=== PATIENT | female | born 1950 | race Hispanic/Latino ===

== ENCOUNTER 2019-02-21 22:34 | Inpatient (IN) | payer SELFPAY ==
[2019-02-21] MEDS ORDERED: FUROSEMIDE 100 MG/10 ML VIAL IV ONE (22:52)
[2019-02-21 22:57] LABS: Absolute Lymphocytes (CBC) 2.3 K/uL (0.7-4.9); Basophils % 0.5 % (0-1.3); Hematocrit 40.9 % (36.0-45.0); Lymphocytes % 16.3 % (15.3-44.8); MPV 8.4 fL (7.6-11.3)
[2019-02-21 22:57] LABS: Arterial Blood Carboxyhemoglob 0.7 % (0-1.5); Blood Gas Oxyhemoglobin 96.5 % (94-97); Blood O2 Saturation 97.8 % (92-98.5)
[2019-02-21 23:08] LABS: Protime INR 1.04
[2019-02-21 23:18] LABS: Albumin 4.2 g/dL (3.4-5.0); Bilirubin Direct 0.2 mg/dL (0-0.2); Bilirubin Total 0.4 mg/dL (0.2-1.0); Magnesium 1.9 mg/dL (1.8-2.4); Protein, Total 7.9 g/dL (6.4-8.2); Troponin (Emerg Dept Use Only) 0.02 ng/mL (0.0-0.045)
[2019-02-22] MEDS ORDERED: ACETAMINOPHEN 500 MG TAB ONE (00:51)
--- NOTE | 2019-02-22 02:00 | ER ---
Nurse's Notes [facility] Name: Puja Stuart Age: 68 yrs Sex: Female : 1950 Arrival Date: 02/21/2019 Time: 22:39 Bed 3 Private MD: Diagnosis: Acute dyspnea. Congestive heart failure. Chest pain Presentation: 02/21 22:45 Presenting complaint:. Transition of care: patient was not received from another setting of care. Onset of symptoms was February 19, 2019. Risk Assessment: Do you want to hurt yourself or someone else? Patient reports no desire to harm self or others. Initial Sepsis Screen: Does the patient meet any 2 criteria? RR > 20 per min. HR > 90 bpm. Yes Does the patient have a suspected source of infection? Yes: Productive cough/pneumonia If YES to both, name of provider notified: Hank Godfrey MD. 22:45 Method Of Arrival: EMS: [facility] 22:45 Acuity: VITO 1 bb 23:17 Care prior to arrival: Medication(s) given: Normal saline infusion, adenosine 12 mg x bb 2, cardizem 20 mg IV initiated. 18 GA, in the right antecubital area, Oxygen administered. via a non-rebreather mask. Historical: - Allergies: 23:17 No Known Allergies; bb - Home Meds: 23:17 Unable to obtain [Active]; bb - PMHx: 23:17 Diabetes - NIDDM; Hypertension; bb - Immunization history:: Adult Immunizations not up to date. - Social history:: Smoking status: Patient/guardian denies using tobacco, the patient reports quitting approximately 11 years ago. - Ebola Screening: : No symptoms or risks identified at this time. Screenin:07 Abuse screen: Denies threats or abuse. Nutritional screening: No deficits noted. ea Tuberculosis screening: No symptoms or risk factors identified. Fall Risk IV access (20 points). Assessment: 23:11 General: Appears uncomfortable, Behavior is appropriate for age. Pain: Denies pain. ea Neuro: Level of Consciousness is awake, alert, obeys commands, Oriented to person, place, time, situation. Cardiovascular: Patient's skin is warm and dry. Respiratory: Airway is patent Respiratory effort is even, Respiratory pattern is regular, tachypnea Pt on BiPAP, tolerating well Breath sounds are coarse bilaterally. Derm: Skin is moist, Skin is pale, Skin temperature is cool. 23:59 Reassessment: pt on Bipap resp less labored, IV site intact, RT called for transfer of bb pt to CT. 02/22 01:00 Reassessment: Patient and/or family updated on plan of care and expected duration. Pain ea level reassessed. Patient is alert, oriented x 3, equal unlabored respirations, skin warm/dry/pink. Pt complaining of headache, provider notified, medication order obtained, medication administered, pt tolerated well. 03:10 Reassessment: Pt is A\T\O x 4, resp tachypneic, pt on NRB at 10 Lpm and appears more bb comfortable, IV site intact, report called to [facility] for room 403. 03:26 Reassessment: Patient and/or family updated on plan of care and expected duration. Pain ea level reassessed. Reassessment: Patient and/or family updated on plan of care and expected duration. Pain level reassessed. Pt reports she is feeling a better, respiration rate improved. Pt admitted to fourth floor, taken via wheelchair per tech on non rebreather. Pt tolerating well. Vital Signs: 02/21 22:35 BP 134 / 122; Pulse 143; Resp 40; Temp 97.0; Pulse Ox 90% ; Weight 68.04 kg; Height 5 ea ft. 5 in. (165.10 cm); 23:57 BP 118 / 61; Pulse 99; Resp 36 S; Pulse Ox 98% on BiPAP; bb 02/22 03:11 BP 135 / 78; Pulse 103; Resp 24 S; Temp 98(O); Pulse Ox 94% on 10% Non-rebreather mask; bb 02/21 22:35 Body Mass Index 24.96 (68.04 kg, 165.10 cm) ea ED Course: 02/21 22:39 Patient arrived in ED. em1 22:44 Hank Godfrey MD is Attending Physician. pkl 22:45 Patient RT at bedside for Bipap placement. Family accompanied patient. bb 22:55 Salome Aponte, LEODAN is Primary Nurse. ea 23:10 Chest Single View XRAY In Process Unspecified. EDMS 23:10 Patient has correct armband on for positive identification. Bed in low position. Call ea light in reach. Side rails up X2. 23:10 Maintain EMS IV. Dressing intact. Good blood return noted. Site clean \T\ dry. Gauge \T\ ea site: 18 G to right AC. 23:14 Arm band placed on right wrist. Patient placed in an exam room, on a stretcher, on ea scada technician, on pulse oximetry, Placed on BiPAP by respiratory. 23:16 Triage completed. bb 23:47 Radiology exam delayed due to Patient given Lasix. On bed garcia at this time. kw1 02/22 00:42 CT Chest For PE Angio In Process Unspecified. EDMS 01:58 Juan Osborne DO is Hospitalizing Provider. pkl 03:12 No provider procedures requiring assistance completed. Patient admitted, IV remains in bb place. Administered Medications: 02/21 22:56 Drug: Lasix 80 mg Route: IVP; Site: right antecubital; ea 02/22 03:13 Follow up: Response: No adverse reaction bb 00:54 Drug: Tylenol 1000 mg Route: PO; ea 03:13 Follow up: Response: No adverse reaction bb Output: 02/21 23:07 Urine: 310ml (Voided); Total: 310ml. ea 23:24 Urine: 300ml (Voided); Total: 610ml. ea Outcome: 02/22 02:00 Decision to Hospitalize by Provider. pkl 03:12 Admitted to Tele accompanied by tech, via stretcher, room 403, with oxygen, with chart, bb Report called to Rina ALCOCER 03:12 Condition: stable 03:12 Instructed on the need for admit. 03:28 Patient left the ED. ea Signatures: Dispatcher [employer] EDNV Hank Godfrey MD MD pkl Ballard, Brenda, RN RN Kei Dawson em1 Salome Aponte RN RN ea Gretel Yun kw1 Corrections: (The following items were deleted from the chart) 02/21 23:19 22:45 Care prior to arrival: None. bb bb 02/22 03:28 02:00 Reassessment: Patient and/or family updated on plan of care and expected ea duration. Pain level reassessed. Patient is alert, oriented x 3, equal unlabored respirations, skin warm/dry/pink. ea
--- NOTE | 2019-02-22 02:01 | EDPHYS ---
Physician Documentation [facility] Name: Puja Stuart Age: 68 yrs Sex: Female : 1950 Arrival Date: 02/21/2019 Time: 22:39 Bed 3 Private MD: ED Physician Hank Godfrey HPI: 02/21 22:50 This 68 yrs old Female presents to ER via Unassigned with unknown complaint. pkl 22:50 The patient has shortness of breath at rest. Onset: The symptoms/episode began/occurred pkl yesterday, and became worse today. Associated signs and symptoms: Pertinent positives: chest pain, diaphoresis. Historical: - Allergies: 23:17 No Known Allergies; bb - Home Meds: 23:17 Unable to obtain [Active]; bb - PMHx: 23:17 Diabetes - NIDDM; Hypertension; bb - Immunization history:: Adult Immunizations not up to date. - Social history:: Smoking status: Patient/guardian denies using tobacco, the patient reports quitting approximately 11 years ago. - Ebola Screening: : No symptoms or risks identified at this time. ROS: 22:50 Eyes: Negative for injury, pain, redness, and discharge, ENT: Negative for injury, pkl pain, and discharge, Neck: Negative for injury, pain, and swelling. 22:50 Cardiovascular: Positive for chest pain. 22:50 Respiratory: Positive for shortness of breath, at rest. 22:50 Abdomen/GI: Negative for abdominal pain, nausea, vomiting, and diarrhea. 22:50 Back: Negative for acute changes. 22:50 : Negative for urinary symptoms. 22:50 MS/extremity: Negative for acute changes. 22:50 Skin: Negative for rash. 22:50 Neuro: Negative for altered mental status, loss of consciousness. Exam: 22:50 Head/Face: Normocephalic, atraumatic. Eyes: Pupils equal round and reactive to light, pkl extra-ocular motions intact. Lids and lashes normal. Conjunctiva and sclera are non-icteric and not injected. Cornea within normal limits. Periorbital areas with no swelling, redness, or edema. ENT: Nares patent. No nasal discharge, no septal abnormalities noted. Tympanic membranes are normal and external auditory canals are clear. Oropharynx with no redness, swelling, or masses, exudates, or evidence of obstruction, uvula midline. Mucous membranes moist. Neck: Trachea midline, no thyromegaly or masses palpated, and no cervical lymphadenopathy. Supple, full range of motion without nuchal rigidity, or vertebral point tenderness. No Meningismus. Chest/axilla: Normal chest wall appearance and motion. Nontender with no deformity. No lesions are appreciated. 22:50 Cardiovascular: Rate: tachycardic, actual rate is 140 bpm, Rhythm: regular. 22:50 ECG was reviewed by the Attending Physician. 22:50 Respiratory: moderate respiratory distress is noted, Respirations: labored breathing, that is moderate, Breath sounds: rales, that are moderate, are scattered. 22:50 Abdomen/GI: Bowel sounds: normal, Palpation: abdomen is soft and non-tender, in all quadrants. 22:50 Back: Exam negative for acute changes. 22:50 : Exam negative for acute changes. 22:50 Musculoskeletal/extremity: Exam is negative for acute changes. 22:50 Skin: Exam negative for rash. 22:50 Neuro: Orientation: is normal, Mentation: is normal, Cranial nerves: grossly normal, Motor: is normal. Vital Signs: 22:35 BP 134 / 122; Pulse 143; Resp 40; Temp 97.0; Pulse Ox 90% ; Weight 68.04 kg; Height 5 ea ft. 5 in. (165.10 cm); 23:57 BP 118 / 61; Pulse 99; Resp 36 S; Pulse Ox 98% on BiPAP; bb 02/22 03:11 BP 135 / 78; Pulse 103; Resp 24 S; Temp 98(O); Pulse Ox 94% on 10% Non-rebreather mask; 02/21 22:35 Body Mass Index 24.96 (68.04 kg, 165.10 cm) ea MDM: 02/21 22:44 Patient medically screened. pkl 02/22 01:56 Data reviewed: vital signs, nurses notes, lab test result(s), EKG, radiologic studies, pkl CT scan, plain films. 02/21 22:45 Order name: Basic Metabolic Panel; Complete Time: 23:27 pkl 02/21 22:45 Order name: CBC with Diff; Complete Time: 23:27 pkl 02/21 22:45 Order name: LFT's; Complete Time: 23:27 pkl 02/21 22:45 Order name: Magnesium; Complete Time: 23:27 pkl 02/21 22:39 Order name: Chest Single View XRAY em1 02/21 22:39 Order name: BIPAP em1 02/21 22:45 Order name: NT PRO-BNP; Complete Time: 23:27 pkl 02/21 22:45 Order name: PT-INR; Complete Time: 23:27 pkl 02/21 22:45 Order name: Troponin (emerg Dept Use Only); Complete Time: 23:27 pkl 02/21 22:45 Order name: D-Dimer; Complete Time: 23:27 pkl 02/21 22:55 Order name: Hemoglobin A1c pkl 02/21 22:55 Order name: ABG; Complete Time: 23:27 em1 02/21 22:45 Order name: EKG; Complete Time: 22:46 pkl 02/21 22:45 Order name: Cardiac monitoring; Complete Time: 22:56 pkl 02/21 22:45 Order name: EKG - Nurse/Tech; Complete Time: 22:56 pkl 02/21 22:45 Order name: IV Saline Lock; Complete Time: 22:57 pkl 02/21 22:45 Order name: Labs collected and sent; Complete Time: 22:57 pkl 02/21 22:45 Order name: O2 Per Protocol; Complete Time: 22:57 pkl 02/21 22:45 Order name: O2 Sat Monitoring; Complete Time: 22:57 pkl 02/21 23:29 Order name: CT Chest For PE Angio pkl Administered Medications: 02/21 22:56 Drug: Lasix 80 mg Route: IVP; Site: right antecubital; ea 02/22 03:13 Follow up: Response: No adverse reaction bb 00:54 Drug: Tylenol 1000 mg Route: PO; ea 03:13 Follow up: Response: No adverse reaction bb Disposition: 02/22/19 02:00 Hospitalization ordered by Juan Osborne for Observation. Preliminary diagnosis is Acute dyspnea. Congestive heart failure. Chest pain. - Bed requested for Telemetry/MedSurg (observation). - Status is Observation. ea - Condition is Stable. - Problem is new. - Symptoms have improved. UTI on Admission? No Signatures: Dispatcher [employer] EDMS Hank Godfrey MD MD pkl Michaelle Escalante RN Trinity Ruiz, Salome Lorenzo RN, RN RN ea Corrections: (The following items were deleted from the chart) 02/21 22:49 22:40 ABG Arterial Blood Gas ordered. EDNE EDMS 02/22 02:25 02:00 Hospitalization Ordered by Juan Osborne DO for Observation. Preliminary cg diagnosis is Acute dyspnea. Congestive heart failure. Chest pain. Bed requested for Telemetry/MedSurg (observation). Status is Observation. Condition is Stable. Problem is new. Symptoms have improved. UTI on Admission? No. pkl 03:28 02:25 02/22/2019 02:00 Hospitalization Ordered by Juan Osborne DO for Observation. ea Preliminary diagnosis is Acute dyspnea. Congestive heart failure. Chest pain. Bed requested for Telemetry/MedSurg (observation). Status is Observation. Condition is Stable. Problem is new. Symptoms have improved. UTI on Admission? No. cg
--- NOTE | 2019-02-22 02:52 | P.HP ---
Certification for Inpatient Patient admitted to: Observation With expected LOS: <2 Midnights Patient will require the following post-hospital care: None Practitioner: I am a practitioner with admitting privileges, knowledge of patient current condition, hospital course, and medical plan of care. Services: Services provided to patient in accordance with Admission requirements found in Title 42 Section 412.3 of the Code of Federal Regulations Patient History Date of Service: 02/22/19 Primary Care Provider: Norm Haley Reason for admission: Chest pain History of Present Illness: 68-year-old female presented to the emergency room with chest pain. Patient with history of diabetes, hypertension and possible cardiomegaly. Patient presented to the ER by EMS. Daughter reported that the patient had increasing chest pain. She also was diaphoretic with severe respiratory distress. Patient denied any fever, chills. She reported headache. She had difficulty breathing with noted shortness of breath. No mention of edema to the lower extremities. Daughter reports patient has history of diabetes, hypertension and enlarged heart. She is not taking any medication except for ibuprofen. In the ER patient was evaluated. Patient was initially tachycardic with a rate in the 140s and tachypneic with a respiratory to 40. Oxygen saturations around 80%. Patient required IV Lasix 80 mg. Patient also required a BiPAP with improvement noted now on a non-rebreather. On lab white count 14.1, hemoglobin 13.6. Sodium 141, potassium 4.0 %period% creatinine 0.95 with a GFR 58. Glucose 247. BNP 2200. Troponin 0.02. CT chest negative for pulmonary embolism. Evidence of CHF noted. Incidental 3.3 cm thyroid nodule and pulmonary nodule noted. Patient now stabilize. Patient admitted for further evaluation. When I saw the patient in the ER, her respiratory distress had resolved after given Lasix. Patient much improved. No chest pain noted at this time. Patient is a former smoker. As mentioned above she only takes ibuprofen for arthritis. Patient is to be taking medication for diabetes, hypertension. Home medications list reviewed: Yes - Past Medical/Surgical History Diabetic: Yes -: Diabetes mellitus type 2 non insulin dependent -: Hypertension -: Cardiomegaly -: Arthritis -: Former tobacco use -: Hysterectomy -: Appendectomy Psychosocial/ Personal History: Patient is . She does not work - Family History Family History: Reviewed- Non-Contributory - Social History Smoking Status: Former smoker Alcohol use: No CD- Drugs: No Caffeine use: Yes Place of Residence: Home Review of Systems General: As per HPI Eyes: Unremarkable ENT: Unremarkable Respiratory: Shortness of Breath, SOB with Excertion, As per HPI Cardiovascular: Chest Pain, Palpitations, Light Headedness, As per HPI Gastrointestinal: Unremarkable Genitourinary: Unremarkable Musculoskeletal: Unremarkable Integumentary: Unremarkable Neurological: Unremarkable Lymphatics: Unremarkable Physical Examination - Physical Exam General: Alert, In no apparent distress, Oriented x3, Cooperative HEENT: Atraumatic, Normocephalic, PERRLA, Mucous membr. moist/pink Neck: Supple Respiratory: Clear to auscultation bilaterally, Normal air movement Cardiovascular: Abnormal pulses (Mild tachycardia ) Gastrointestinal: Normal bowel sounds, Soft and benign, Non-distended, No tenderness, No masses, No rebound, No guarding Musculoskeletal: No erythema, No tenderness, No warmth Integumentary: No tenderness/swelling, No erythema, No warmth, No cyanosis Neurological: Normal speech, Normal strength at 5/5 x4 extr, Normal tone, Normal affect Lymphatics: No axilla or inguinal lymphadenopathy - Studies Laboratory Data (last 24 hrs) 02/21/19 22:49: PT 12.2, INR 1.04 02/21/19 22:49: WBC 14.1 H, Hgb 13.6, Hct 40.9, Plt Count 246 02/21/19 22:49: Sodium 141, Potassium 4.0, BUN 19 H, Creatinine 0.95, Glucose 247 H, Magnesium 1.9, Total Bilirubin 0.4, AST 22, ALT 30, Alkaline Phosphatase 107 Assessment and Plan - Plan Impression: Chest pain, shortness of breath with noted acute respiratory distress likely related to acute CHF suspect diastolic dysfunction Diabetes mellitus type 2, non insulin dependent with hyperglycemia Hypertension Thyroid nodule Pulmonary nodule Former tobacco use Plan: Chest pain, shortness of breath with noted acute respiratory distress likely related to acute CHF suspect diastolic dysfunction: Patient will be admitted for further evaluation and treatment. Patient much improved with Lasix. Suspect CHF. Will monitor cardiac enzymes and telemetry. Will order echocardiogram. Will continue with Lasix 40 mg p.o. b.i.d. we will obtain procalcitonin to rule out infectious cause. Cardiology consulted to further evaluate. Patient has multiple risk factors. Patient may require further cardiac evaluation. Will provide DVT prophylaxis-Lovenox. Recheck chest x-ray this morning. Wean off oxygen. Daytime hospitalist will continue her care. Anticipate discharge in the next 24-48 hr pending clinical improvement and cardiology recommendation. Diabetes mellitus type 2, non insulin dependent with hyperglycemia: Will check A1c. Will monitor Accu-Cheks and provide sliding scale. Hypertension: Will start metoprolol. Will provide medication for better blood pressure control. Thyroid nodule: This is an incidental finding. Will check tsh and free T4. Recommend thyroid ultrasound as an outpatient. Pulmonary nodule: This is an incidental finding. Recommend repeat CT chest in the near future to further monitor stability. Former tobacco use: Overall stable. Will provide medication for possible underlying COPD. Discharge Plan: Home Plan to discharge in: 48 Hours - Advance Directives Does patient have a Living Will: No Does patient have a Durable POA for Healthcare: No - Code Status/Comfort Care Code Status Assessed: Yes (Patient is full code) Time Spent Managing Pts Care (In Minutes): 55
[2019-02-22] MEDS ORDERED: HYDRALAZINE HCL 20 MG/ML VIAL IV PRN (03:43)
[2019-02-22] MEDS ORDERED: ONDANSETRON 4 MG/2 ML VIAL IV PRN (03:43)
[2019-02-22] MEDS ORDERED: ALBUTEROL 2.5 MG/3 ML NEB SOL NEB PRN (03:43)
[2019-02-22] MEDS ORDERED: ACETAMINOPHEN 500 MG TAB PO PRN (03:43)
[2019-02-22 04:21] VITALS: BMI 25.0
[2019-02-22] MEDS: METOPROLOL TAR 25 MG TAB PO SCH ×2 (05:17→17:42)
[2019-02-22 05:43] LABS: Urine Appearance CLEAR; Urine Bilirubin NEGATIVE (NEG); Urine Blood NEGATIVE (NEG); Urine Color YELLOW; Urine Glucose NEGATIVE (NEG); Urine Protein NEGATIVE (NEG); Urine Specific Gravity >=1.030 (1.005-1.030); Urine Urobilinogen 0.2 mg/dL (0.2-1.0)
[2019-02-22 05:56] LABS: Urine Microscopic Reflex NO UMIC
[2019-02-22 06:55] LABS: CKMB Creatine Kinase MB 3.3 ng/mL (0.3-3.6); Thyroid Stimulating Hormone 2.21 uIU/mL (0.360-3.740)
[2019-02-22 07:03] LABS: Troponin I 1.27 ng/mL (0.0-0.045)
[2019-02-22] MEDS: INSULIN -REGULAR HUMAN 50 UNIT/0.5 ML ML SQ SCH ×4 (07:30→21:00)
[2019-02-22] MEDS: ARFORMOTEROL TARTRATE 15 MCG/2 ML VIAL.NEB NEB SCH ×2 (08:00→20:00)
[2019-02-22] MEDS: FUROSEMIDE 40 MG TABLET PO SCH ×2 (08:02→16:06)
[2019-02-22] MEDS: ASPIRIN EC 81 MG TAB PO SCH (08:02)
[2019-02-22] MEDS: ENOXAPARIN 40 MG/0.4 ML SQ SCH (08:02)
[2019-02-22] MEDS: FAMOTIDINE 20 MG TAB PO SCH ×2 (08:02→20:04)
[2019-02-22] MEDS ORDERED: PNEUMOCOCCAL VACCINE 0.5 ML IMVAC ONE (09:00)
[2019-02-22] MEDS ORDERED: NITROGLYCERIN 0.4 MG/TAB SL PRN (10:43)
[2019-02-22] MEDS ORDERED: MORPHINE 2 MG/ML SYR IV PRN (10:43)
--- NOTE | 2019-02-22 10:45 | EKG ---
Test Date: 2019-02-22 Test Time: 08:37:38 Paralegal Legal Secretary: SEEMA MEASUREMENT RESULTS: Intervals: Rate: 87 MA: 140 QRSD: 102 QT: 442 QTc: 531 [place]: P: 66 MA: 140 QRS: 96 T: -45 INTERPRETIVE STATEMENTS: Normal sinus rhythm Rightward axis Voltage criteria for left ventricular hypertrophy ST & T wave abnormality, consider inferior ischemia Prolonged QT Abnormal ECG Compared to ECG 02/21/2019 22:41:49 Right-axis deviation now present ST (T wave) deviation now present Possible ischemia now present Prolonged QT interval now present Sinus tachycardia no longer present Myocardial infarct finding no longer present Electronically Signed On 02-22-19 10:45:06 CDT by Nick Tyson
--- NOTE | 2019-02-22 10:46 | EKG ---
Test Date: 2019-02-21 Test Time: 22:41:49 Tonnage Compilation Clerk: EA MEASUREMENT RESULTS: Intervals: Rate: 123 IL: 134 QRSD: 118 QT: 352 QTc: 503 [place]: P: 69 IL: 134 QRS: 21 T: 68 INTERPRETIVE STATEMENTS: Sinus tachycardia Left ventricular hypertrophy with QRS widening Cannot rule out Septal infarct, age undetermined Abnormal ECG Compared to ECG 01/21/2011 11:03:22 Myocardial infarct finding now present ST (T wave) deviation no longer present Electronically Signed On 02-22-19 10:45:25 CDT by Nick Tyson
--- NOTE | 2019-02-22 11:41 | RAD REPORT ---
EXAM DESCRIPTION: Mariann Single View02/21/2019 11:08 pm CLINICAL HISTORY: Chest pain COMPARISON: none FINDINGS: Mild bilateral interstitial lung opacities Heart is mildly to moderately enlarged IMPRESSION: Mild CHF
--- NOTE | 2019-02-22 12:43 | CON ---
Identification: 68-year-old woman. Additional Attending Physician: Dr. Quinn. Chief Complaint: Chest pain. History Of Present Illness: Ms. Stuart had chest pain yesterday. She has underlying diabetes, hypert ension. Takes medicines, but does not know the name of the medicines. She does not use tobacco. Andrwe rocha has never had myocardial infarction or stroke before. Allergies: SHE REPORTS NO ALLERGIES. Social History: Alcohol use minimal. No illegal drugs. Physical Examination: Constitutional: 5 feet 5 inches, 150 pounds. Body mass index 25.0. HEENT: Normal. Neck: Carotids, no bruit. Lungs: Clear. Cardiac: Within normal limits. Abdomen: Soft. Extremities: No cyanosis, clubbing, or edema. Distal pulses normal. Diagnostic Studies: Her electrocardiogram shows sinus rhythm, left ventricular hypertrophy, nonspeci fic repolarization abnormality. Ms. Stuart's troponins were normal when she came in and has gone up t o 1.27. Impression: Ms. Stuart has had a non-ST elevation non-Q-wave myocardial infarction. I think she need s to have a heart catheterization. We will preach her about that and plan to do it 48 hours from now. In the meantime, she will be on a statin, a beta-hailey, and dual antiplatelet ther apy. ANDREW/RAYA Voice ID: [id number] Report ID: [id number]
[2019-02-22 13:42] LABS: CKMB Creatine Kinase MB 2.3 ng/mL (0.3-3.6)
[2019-02-22 13:43] LABS: Troponin I 0.85 ng/mL (0.0-0.045)
[2019-02-22] MEDS: ATORVASTATIN 40 MG TAB PO SCH (20:04)
[2019-02-23] MEDS: METOPROLOL TAR 25 MG TAB PO SCH ×2 (05:46→17:24)
--- NOTE | 2019-02-23 06:18 | EKG ---
Test Date: 2019-02-22 Test Time: 08:42:59 Viscosity Inspector: SEEMA MEASUREMENT RESULTS: Intervals: Rate: 86 TX: 136 QRSD: 110 QT: 442 QTc: 528 [place]: P: 67 TX: 136 QRS: -31 T: 85 INTERPRETIVE STATEMENTS: Normal sinus rhythm Possible Left atrial enlargement Left axis deviation Intraventricular conduction delay Left ventricular hypertrophy Nonspecific ST and T wave abnormality Prolonged QT Abnormal ECG Compared to ECG 02/22/2019 08:37:38 Left-axis deviation now present Left bundle-branch block now present Right-axis deviation no longer present ST (T wave) deviation still present Electronically Signed On 02-23-19 06:17:45 CDT by Nick Tyson
[2019-02-23 06:57] LABS: Absolute Lymphocytes (CBC) 2.4 K/uL (0.7-4.9); Basophils % 0.8 % (0-1.3); Hematocrit 39.8 % (36.0-45.0); Lymphocytes % 32.3 % (15.3-44.8); MPV 8.7 fL (7.6-11.3)
[2019-02-23 07:07] LABS: Potassium 3.3 mmol/L (3.5-5.1)
[2019-02-23] MEDS: INSULIN -REGULAR HUMAN 50 UNIT/0.5 ML ML SQ SCH ×4 (07:30→21:00)
[2019-02-23] MEDS: IPRATROPIUM BROM 0.5MG/2.5ML NEB PRN (08:30)
[2019-02-23] MEDS: ARFORMOTEROL TARTRATE 15 MCG/2 ML VIAL.NEB NEB SCH ×2 (08:30→19:55)
[2019-02-23] MEDS ORDERED: POTASSIUM 25 MEQ EFFERV TAB PO ONE ×2 (09:04→17:30)
[2019-02-23] MEDS: ASPIRIN EC 81 MG TAB PO SCH (09:26)
[2019-02-23] MEDS: ENOXAPARIN 40 MG/0.4 ML SQ SCH (09:26)
[2019-02-23] MEDS: FUROSEMIDE 40 MG TABLET PO SCH (09:26)
[2019-02-23] MEDS: FAMOTIDINE 20 MG TAB PO SCH ×2 (09:26→20:08)
--- NOTE | 2019-02-23 11:00 | RAD REPORT ---
EXAM DESCRIPTION: RAD - Chest Pa And Lat (2 Views) - 02/23/2019 10:26 am CLINICAL HISTORY: follow up CHFCHF, shortness of breath COMPARISON: CT chest PE study February 21, portable chest February 21 TECHNIQUE: PA and lateral views of the chest were obtained. FINDINGS: The lungs are clear of a peripheral mass or consolidation. Heart size is upper normal. Vas culature within normal limits. Interstitial markings are prominent but less pronounced than seen Oc tober 4. Little or no remnant CHF is identifiable. No pleural effusion or pneumothorax seen. No acute bony finding noted. No aortic abnormality. IMPRESSION: Complete or near complete resolution of CHF/ volume overload findings. Patient has baseline prominent interstitial pattern.
--- NOTE | 2019-02-23 14:14 | P.PN ---
Subjective Date of Service: 02/23/19 Primary Care Provider: [place] [facility] Chief Complaint: Chest pain Subjective: No new changes, No C/O voiced Patient seen and examined at bedside. Chart reviewed and case discussed with nursing staff. Review of Systems 10-point ROS is otherwise unremarkable Physical Examination - Vital Signs Temperature: 98.0 F Blood Pressure: 115/79 Pulse: 97 Respirations: 16 Pulse Ox (%): 96 - Physical Exam General: Alert, In no apparent distress, Oriented x3 HEENT: Atraumatic, PERRLA, EOMI Neck: Supple, JVD not distended Respiratory: Clear to auscultation bilaterally, Normal air movement Cardiovascular: Regular rate/rhythm, Normal S1 S2 Gastrointestinal: Normal bowel sounds, No tenderness Musculoskeletal: No tenderness Integumentary: No rashes Neurological: Normal speech, Normal tone, Normal affect Lymphatics: No axilla or inguinal lymphadenopathy Assessment And Plan - Plan Impression: Chest pain, shortness of breath with noted acute respiratory distress likely related to acute CHF suspect diastolic dysfunction Diabetes mellitus type 2, non insulin dependent with hyperglycemia Hypertension Thyroid nodule Pulmonary nodule Former tobacco use Plan: Chest pain Shortness of breath Acute respiratory distress likely related to acute CHF suspect diastolic dysfunction: -Cardiology consulted, recommendations appreciated. -Patient pending cardiac cath -Echocardiogram ordered, pending. -Continue IV lasix 40 BID -Repeat CXR with almost complete resolution of CHF pattern Diabetes mellitus type 2, non insulin dependent with hyperglycemia: Will monitor Accu-Cheks and provide sliding scale. Hypertension: Will continue metoprolol. Thyroid nodule: -This is an incidental finding. -Recommend thyroid ultrasound as an outpatient. Pulmonary nodule: -This is an incidental finding. -Recommend repeat CT chest in the near future to further monitor stability. Former tobacco use: Overall stable. Will provide medication for possible underlying COPD. Disposition: Pending cardiac cath tomorrow.
--- NOTE | 2019-02-23 15:47 | PN ---
Ms. Stuart is no longer having chest pain, looks like she has had a non-ST elevation non-Q-wave OK. I have recommended cardiac cath to her. We plan to do this tomorrow. We will be ready to put a stent in if it is appropriate. Her creatinine today is 0.67, blood sugars 162. Her LDL cholesterol is 81 . ANDREW/RAYA Voice ID: [id number] Report ID: [id number]
[2019-02-23] MEDS: ATORVASTATIN 40 MG TAB PO SCH (20:08)
[2019-02-24 04:38] LABS: Potassium 4.1 mmol/L (3.5-5.1)
[2019-02-24] MEDS: ASPIRIN EC 81 MG TAB PO SCH (05:18)
[2019-02-24] MEDS: METOPROLOL TAR 25 MG TAB PO SCH ×2 (05:18→17:06)
[2019-02-24] MEDS: FAMOTIDINE 20 MG TAB PO SCH ×2 (05:19→20:38)
[2019-02-24] MEDS: ARFORMOTEROL TARTRATE 15 MCG/2 ML VIAL.NEB NEB SCH ×2 (07:22→20:25)
[2019-02-24] MEDS: INSULIN -REGULAR HUMAN 50 UNIT/0.5 ML ML SQ SCH ×4 (07:30→20:40)
[2019-02-24] MEDS: ENOXAPARIN 40 MG/0.4 ML SQ SCH (08:58)
--- NOTE | 2019-02-24 10:06 | P.PN ---
Subjective Date of Service: 02/24/19 Primary Care Provider: [facility] Chief Complaint: Chest pain Subjective: No C/O voiced Patient seen and examined at bedside. Chart reviewed and case discussed with nursing staff. Pending cath today Review of Systems 10-point ROS is otherwise unremarkable Physical Examination - Vital Signs Temperature: 97.3 F Blood Pressure: 130/79 Pulse: 85 Respirations: 18 Pulse Ox (%): 97 - Physical Exam General: Alert, In no apparent distress, Oriented x3 HEENT: Atraumatic, PERRLA, EOMI Neck: Supple, JVD not distended Respiratory: Clear to auscultation bilaterally, Normal air movement Cardiovascular: Regular rate/rhythm, Normal S1 S2 Gastrointestinal: Normal bowel sounds, No tenderness Musculoskeletal: No tenderness Integumentary: No rashes Neurological: Normal speech, Normal tone, Normal affect Lymphatics: No axilla or inguinal lymphadenopathy - Studies Laboratory Data (last 24 hrs) 02/24/19 03:56: Sodium 140, Potassium 4.1, BUN 23 H, Creatinine 0.76, Glucose 155 H 02/23/19 16:37: Potassium 3.8 Microbiology Data (last 24 hrs): 02/22/19 05:20 Blood - Blood Anaerobic Blood Culture - Final 02/22/19 05:10 Blood - Blood Anaerobic Blood Culture - Final Assessment And Plan - Plan Impression: Chest pain, shortness of breath with noted acute respiratory distress likely related to acute CHF suspect diastolic dysfunction Diabetes mellitus type 2, non insulin dependent with hyperglycemia Hypertension Thyroid nodule Pulmonary nodule Former tobacco use Plan: Chest pain Shortness of breath Acute respiratory distress likely related to acute CHF suspect diastolic dysfunction: -Cardiology consulted, recommendations appreciated. -Patient pending cardiac cath, today -Echocardiogram ordered, pending. -Continue IV lasix 40 BID -Repeat CXR with almost complete resolution of CHF pattern Diabetes mellitus type 2, non insulin dependent with hyperglycemia: Will monitor Accu-Cheks and provide sliding scale. Hypertension: Will continue metoprolol. Thyroid nodule: -This is an incidental finding. -Recommend thyroid ultrasound as an outpatient. Pulmonary nodule: -This is an incidental finding. -Recommend repeat CT chest in the near future to further monitor stability. Former tobacco use: Overall stable. Will provide medication for possible underlying COPD. Disposition: Pending cardiac cath tomorrow.
--- NOTE | 2019-02-24 17:15 | EKG ---
Test Date: 2019-02-24 Test Time: 16:51:31 Chief Payroll Clerk: KADIE MEASUREMENT RESULTS: Intervals: Rate: 105 TX: 156 QRSD: 114 QT: 376 QTc: 496 Gunter: P: 75 TX: 156 QRS: 3 T: 68 INTERPRETIVE STATEMENTS: Sinus tachycardia Right atrial enlargement LVH with secondary repolarization changes and QRS widening Abnormal ECG Compared to ECG 02/22/2019 08:42:59 Sinus rhythm no longer present ST (T wave) deviation still present Electronically Signed On 02-24-19 17:15:09 CDT by Nick Tyson
[2019-02-24] MEDS: IPRATROPIUM BROM 0.5MG/2.5ML NEB PRN (20:25)
[2019-02-24] MEDS: ATORVASTATIN 40 MG TAB PO SCH (20:38)
[2019-02-25] MEDS ORDERED: NA CHLORIDE 0.9% 1,000 ML ONE (05:39)
[2019-02-25] MEDS: METOPROLOL TAR 25 MG TAB PO SCH (06:00)
[2019-02-25] MEDS: ASPIRIN EC 81 MG TAB PO SCH (06:24)
[2019-02-25] MEDS ORDERED: HEPA 1000U/500MLS 2,000 UNIT/1,000 ML BAG IV ONE (07:17)
[2019-02-25] MEDS ORDERED: NA CHLORIDE 0.9% 0 ML ONE ×2 (07:17→07:18)
[2019-02-25] MEDS ORDERED: NITROGLYCERIN 100 MCG/ML SYR (for cath lab use only) IV ONE (07:18)
[2019-02-25] MEDS ORDERED: HEPARIN 5000 UNIT/ML 1 ML VIAL ONE (07:18)
[2019-02-25] MEDS ORDERED: NITROGLYCERIN/D5W 25 MG/250 ML BTL IV ONE (07:18)
[2019-02-25] MEDS ORDERED: ATROPINE SULF 1 MG/10 ML SYR IV ONE (07:18)
[2019-02-25] MEDS ORDERED: NICARDIPINE HCL 25 MG/10 ML IV ONE (07:18)
[2019-02-25] MEDS: INSULIN -REGULAR HUMAN 50 UNIT/0.5 ML ML SQ SCH ×4 (07:30→22:13)
[2019-02-25] MEDS: ARFORMOTEROL TARTRATE 15 MCG/2 ML VIAL.NEB NEB SCH (08:01)
[2019-02-25] MEDS ORDERED: FENTANYL CITR 100 MCG/2 ML ONE (08:13)
[2019-02-25] MEDS ORDERED: MIDAZOLAM HCL 2 MG/2 ML INJ ONE ×2 (08:13→08:24)
[2019-02-25] MEDS ORDERED: ACETAMINOPHEN 325 MG TABLET PO PRN (12:00)
[2019-02-25] MEDS ORDERED: NA CHLORIDE 0.9% 1,000 ML IV SCH (12:00)
[2019-02-25] MEDS: LISINOPRIL 20 MG TAB PO SCH (12:57)
--- NOTE | 2019-02-25 14:06 | RAD REPORT ---
EXAM DESCRIPTION: CT - Chest For Pe Angio - 02/22/2019 2:52 am CLINICAL HISTORY: 68 years Female Elevated D-dimer;Chest pain;Dyspnea COMPARISON: None. TECHNIQUE: Contiguous axial images obtained through the chest during the infusion of IV contrast. Re formatted images obtained. MIP reformatted images obtained. This exam was performed according to our department optimization program which includes automated exp osure control, adjustment of the mA and/or kv according to patient size and/or use of iterative recon struction technique. FINDINGS: The study is suboptimal from motion. There is a low-density lesion in the isthmus of the thyroid measuring 3.3 cm in maximum diameter. There is a low-density lesion in the liver measuring 1.1 cm in diameter likely representing a cyst. There is mild cardiomegaly and coronary artery calcifications. The mediastinum appears unremarkable. Atherosclerotic calcifications in the thoracic aorta. No pulmonary emboli are identified. There are small bilateral pleural effusions larger on the right. There are areas of scarring or atele ctasis in the right middle lobe and at the lung bases. There are mild interstitial changes. No pneu mothorax. 0.4 cm nodular lesion in the right upper lung on image 37/130. IMPRESSION: No pulmonary emboli are identified. There is mild cardiomegaly, interstitial changes and bilateral pleural effusions. The findings sugges t CHF. The possibility of an infectious process should also be considered. 3.3 cm incidental thyroid nodule. Recommend thyroid US. Reference: J Am Rojas Radiol. 2015 Jun;12(2): 143-50 4.0 mm solid pulmonary nodule within the upper lobe. If patient is low risk for malignancy, no routin e follow-up imaging is recommended; if patient is high risk for malignancy, a non-contrast Chest CT a t 12 months is optional. If performed and the nodule is stable at 12 months, no further follow-up is recommended. These guidelines do not apply to immunocompromised patients and patients with cancer. Follow up in pa tients with significant comorbidities as clinically warranted. For lung cancer screening, adhere to L martha-RADS guidelines. Reference: Radiology. 2017; 284(1):228-43. Electronically signed by: Max Garsia MD 02/22/2019 12:51 AM CDT Due to temporary technical issues with the PACS/Fluency reporting system, reports are being signed by the in house radiologist as a courtesy to ensure prompt reporting. The interpreting radiologist is f ully responsible for the content of the report.
[2019-02-25] MEDS: METOPROLOL TAR 50 MG TAB PO SCH (17:22)
--- NOTE | 2019-02-25 17:28 | P.PN ---
Subjective Date of Service: 02/25/19 Primary Care Provider: Norm Haley Chief Complaint: Chest pain Subjective: No C/O voiced, Improving Patient seen and examined at bedside. Chart reviewed and case discussed with nursing staff. Pending cath today - unable to be done yesterday No acute events noted overnight Review of Systems 10-point ROS is otherwise unremarkable Physical Examination - Vital Signs Temperature: 99.1 F Blood Pressure: 138/75 Pulse: 98 Respirations: 18 Pulse Ox (%): 95 - Physical Exam General: Alert, In no apparent distress HEENT: Atraumatic, PERRLA, EOMI Neck: Supple, JVD not distended Respiratory: Clear to auscultation bilaterally, Normal air movement Cardiovascular: Regular rate/rhythm, Normal S1 S2 Gastrointestinal: Normal bowel sounds, No tenderness Musculoskeletal: No tenderness Integumentary: No rashes Neurological: Normal speech, Normal tone, Normal affect Lymphatics: No axilla or inguinal lymphadenopathy Assessment And Plan - Plan Impression: Chest pain, shortness of breath with noted acute respiratory distress likely related to acute CHF suspect diastolic dysfunction Diabetes mellitus type 2, non insulin dependent with hyperglycemia Hypertension Thyroid nodule Pulmonary nodule Former tobacco use Plan: Chest pain Shortness of breath Acute respiratory distress likely related to acute CHF suspect diastolic dysfunction: -Cardiology consulted, recommendations appreciated. -Patient pending cardiac cath, today -Echocardiogram ordered, pending. -Continue IV lasix 40 BID -Repeat CXR with almost complete resolution of CHF pattern Diabetes mellitus type 2, non insulin dependent with hyperglycemia: Will monitor Accu-Cheks and provide sliding scale. Hypertension: Will continue metoprolol. Thyroid nodule: -This is an incidental finding. -Recommend thyroid ultrasound as an outpatient. Pulmonary nodule: -This is an incidental finding. -Recommend repeat CT chest in the near future to further monitor stability. Former tobacco use: Overall stable. Will provide medication for possible underlying COPD. Disposition: Pending cardiac cath today.
--- NOTE | 2019-02-25 19:40 | OP ---
Surgeon: Nick Tyson MD Procedure: Left heart catheterization with coronary and left ventricular angiography. Indication: [id number] CO. Procedure Findings: The patient has normal coronary arteries, very large lumen, no lumen irregularit ies or stenosis or occlusions. Her ejection fraction is depressed at about 40%. There is global hyp okinesis. 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 Procedure In Detail: The patient was brought to the cardiac labor service representative in a fasting state, sedated wit h Versed and fentanyl. Right radial approach was used. She was anesthetized with 1% lidocaine in th e tissues around the artery. The artery was entered using a 21-gauge needle, cannulated with a 0.021 inch diameter guidewire and a 6-Spanish Terumo sheath was placed over the guide wire. The sheath was flushed and a radial cocktail was given consisting of nicardipine, heparin, and nitroglycerin. We g uided a TIG catheter to the ascending aorta using a short radius J-tip Terumo Glidewire and fluorosco py. The TIG catheter was able to angiogram right coronary, left coronary, and left ventricle. At th e end of the procedure, the TIG catheter was removed over a J-wire. Sheath was removed and the arter iotomy closed with a TR band. Complications: None. Estimated Blood Loss: 5 mL. Shipyard Helper: Danna Salas. ANDREW/RAYA Voice ID: [id number] Report ID: [id number]
[2019-02-25] MEDS: ATORVASTATIN 40 MG TAB PO SCH (22:14)
[2019-02-26 06:00] VITALS: O2SAT 96
[2019-02-26] MEDS: METOPROLOL TAR 50 MG TAB PO SCH (06:00)
[2019-02-26] MEDS: INSULIN -REGULAR HUMAN 50 UNIT/0.5 ML ML SQ SCH ×2 (07:30→11:30)
[2019-02-26] MEDS: LISINOPRIL 20 MG TAB PO SCH (09:30)
[2019-02-26] MEDS: ASPIRIN EC 81 MG TAB PO SCH (09:30)
[2019-02-26 12:06] VITALS: BP 116/68; TEMP 98.1
--- NOTE | 2019-02-26 17:30 | P.DS ---
Admission Date: 02/24/19 Discharge Date: 02/26/19 Primary Care Provider: Norm Haley Disposition: ROUTINE DISCHARGE Discharge Condition: GOOD Reason for Admission: Chest pain Consultations: Cardiology Brief History of Present Illness: 68-year-old female presented to the emergency room with chest pain. Patient with history of diabetes, hypertension and possible cardiomegaly. Patient presented to the ER by EMS. Daughter reported that the patient had increasing chest pain. She also was diaphoretic with severe respiratory distress. Patient denied any fever, chills. She reported headache. She had difficulty breathing with noted shortness of breath. No mention of edema to the lower extremities. Daughter reports patient has history of diabetes, hypertension and enlarged heart. She is not taking any medication except for ibuprofen. In the ER patient was evaluated. Patient was initially tachycardic with a rate in the 140s and tachypneic with a respiratory to 40. Oxygen saturations around 80%. Patient required IV Lasix 80 mg. Patient also required a BiPAP with improvement noted now on a non-rebreather. On lab white count 14.1, hemoglobin 13.6. Sodium 141, potassium 4.0 %period% creatinine 0.95 with a GFR 58. Glucose 247. BNP 2200. Troponin 0.02. CT chest negative for pulmonary embolism. Evidence of CHF noted. Incidental 3.3 cm thyroid nodule and pulmonary nodule noted. Patient now stabilize. Patient admitted for further evaluation. When I saw the patient in the ER, her respiratory distress had resolved after given Lasix. Patient much improved. No chest pain noted at this time. Patient is a former smoker. As mentioned above she only takes ibuprofen for arthritis. Patient is to be taking medication for diabetes, hypertension. Hospital Course: Patient was admitted for chest pain along with shortness of breath. Cardiology was consulted. Patient underwent a cardiac catheterization, requiring no interventions. Echocardiogram was ordered, was with diastolic dysfunction. She was provided with Lasix for diuresis along with medical management for her cardiac disease. She was then cleared for discharge by cardiology. She was discharged on medications for heart failure, including metoprolol and lisinopril. She otherwise did well throughout the stay. She will follow up with cardiology in 2 weeks. Her diagnoses and treatment plan was explained to her and her daughter at bedside, they verbalized understanding and all questions were answered. She was then discharged home in a safe and stable manner. Vital Signs/Physical Exam: Temp Pulse Resp BP Pulse Ox 98.1 F 99 H 18 116/68 95 02/26/19 12:00 02/26/19 12:00 02/26/19 12:00 02/26/19 12:00 02/26/19 12:00 General: Alert, In no apparent distress HEENT: Atraumatic, PERRLA, EOMI Neck: Supple, JVD not distended Respiratory: Clear to auscultation bilaterally, Normal air movement Cardiovascular: Regular rate/rhythm, Normal S1 S2 Gastrointestinal: Normal bowel sounds, No tenderness Musculoskeletal: No tenderness Integumentary: No rashes Neurological: Normal speech, Normal tone, Normal affect Lymphatics: No axilla or inguinal lymphadenopathy Laboratory Data at Discharge: WBC 7.4 K/uL (4.3-10.9) D 02/23/19 06:12 Hgb 14.3 g/dL (12.0-15.0) 02/23/19 06:12 Hct 39.8 % (36.0-45.0) 02/23/19 06:12 Plt Count 237 K/uL (152-406) 02/23/19 06:12 PT 12.2 SECONDS (9.5-12.5) 02/21/19 22:49 INR 1.04 02/21/19 22:49 Sodium 140 mmol/L (136-145) 02/24/19 03:56 Potassium 4.1 mmol/L (3.5-5.1) 02/24/19 03:56 BUN 23 mg/dL (7-18) H 02/24/19 03:56 Creatinine 0.76 mg/dL (0.55-1.3) 02/24/19 03:56 Glucose 155 mg/dL (74-106) H 02/24/19 03:56 Magnesium 2.0 mg/dL (1.8-2.4) 02/23/19 06:12 Total Bilirubin 0.4 mg/dL (0.2-1.0) 02/21/19 22:49 AST 22 U/L (15-37) 02/21/19 22:49 ALT 30 U/L (12-78) 02/21/19 22:49 Alkaline Phosphatase 107 U/L (45-117) 02/21/19 22:49 Troponin I 0.85 ng/mL (0.0-0.045) H* 02/22/19 13:10 Triglycerides 154 mg/dL (<150) H 02/22/19 06:03 Cholesterol 170 mg/dL (<200) 02/22/19 06:03 HDL Cholesterol 58 mg/dL (40-60) 02/22/19 06:03 Cholesterol/HDL Ratio 2.93 02/22/19 06:03 Home Medications: Metformin ER [Glucophage ER*] 1,000 mg PO DAILY 02/22/19 Atorvastatin Calcium [Lipitor] 40 mg PO BEDTIME #30 tab 02/26/19 Lisinopril [Prinivil*] 20 mg PO DAILY #30 tab 02/26/19 Metoprolol Tartrate [Lopressor*] 50 mg PO BID 6AM 6PM #60 tab 02/26/19 New Medications: Atorvastatin Calcium [Lipitor] 40 mg PO BEDTIME #30 tab Lisinopril [Prinivil*] 20 mg PO DAILY #30 tab Metoprolol Tartrate [Lopressor*] 50 mg PO BID 6AM 6PM #60 tab Patient Discharge Instructions: Please follow up with your primary care physician in 2-3 days. Please follow up with hygiene teacher in 1-2 weeks. Return to the ER for worsening symptoms. Diet: AHA Activity: Ad devika Followup: Nick Tyson MD [ACTIVE - CAN ADMIT] - (call to schedule appointment) Time spent managing pt's care (in minutes): 55
== END 2019-02-26 12:50 | disposition home or self-care (01) | DRG 280 ==
LOC: ER 22:34 → ERHOLD 02-22 02:19 → 4TH 02-22 03:14 → OBSVTOIN 02-24 08:26
PROVIDERS: ADMIT Family Medicine; ATTEND Family Medicine
PROC: 5A09357 Assistance with Respiratory Ventilation, Less than 24 Consecutive Hours, Continuous Positive Airway Pressure (ICD-10-PCS; 2019-02-21)
PROC: 4A023N7 Measurement of Cardiac Sampling and Pressure, Left Heart, Percutaneous Approach (ICD-10-PCS; principal; 2019-02-25)
PROC: B201YZZ Plain Radiography of Multiple Coronary Arteries using Other Contrast (ICD-10-PCS; 2019-02-25)
PROC: B205YZZ Plain Radiography of Left Heart using Other Contrast (ICD-10-PCS; 2019-02-25)
DX: I21.4 Non-ST elevation (NSTEMI) myocardial infarction (principal); I50.31 Acute diastolic (congestive) heart failure; I11.0 Hypertensive heart disease with heart failure; E11.9 Type 2 diabetes mellitus without complications; M19.90 Unspecified osteoarthritis, unspecified site; E11.65 Type 2 diabetes mellitus with hyperglycemia; E04.1 Nontoxic single thyroid nodule; R91.1 Solitary pulmonary nodule; R06.03 Acute respiratory distress; Z87.891 Personal history of nicotine dependence
CPT/HCPCS: 36415; 71045; 71046; 71275; 80048; 80061; 80076; 81003; 82550; 82553; 82805; 82962; 83036; 83735; 83880; 84132; 84145; 84439; 84443; 84484; 85025; 85379; 85610; 87040; 93005; 93458; 94640; 94660; 96374; 99291; 99292; C1893; G0378; J0583; J1644; J1650; J2250; J2270; J3010; J7030; J7040; J7605; Q9967

== ENCOUNTER 2019-04-10 23:19 | Inpatient (IN) | payer SELFPAY ==
[2019-04-10] MEDS ORDERED: FUROSEMIDE 40 MG/4 ML VIAL ONE (23:36)
[2019-04-10 23:37] LABS: Arterial Blood Carboxyhemoglob 0.5 % (0-1.5); Blood Gas Oxyhemoglobin 98.2 % (94-97); Blood O2 Saturation 99.2 % (92-98.5)
[2019-04-10 23:47] LABS: Absolute Lymphocytes (CBC) 3.5 K/uL (0.7-4.9); Basophils % 1.3 % (0-1.3); Hematocrit 37.9 % (36.0-45.0); Lymphocytes % 32.7 % (15.3-44.8); MPV 8.6 fL (7.6-11.3); RBC Red Blood Cell Count 4.04 M/uL (3.86-4.86)
[2019-04-10 23:51] LABS: Protime INR 0.99
[2019-04-11] MEDS ORDERED: MORPHINE 2 MG/ML SYR ONE (00:01)
[2019-04-11] MEDS ORDERED: ONDANSETRON 4 MG/2 ML VIAL ONE (00:01)
[2019-04-11] MEDS ORDERED: NITROGLYCERIN 1 GM PKT TD ONE (00:27)
[2019-04-11] MEDS ORDERED: ENOXAPARIN 80 MG/0.8 ML SQ ONE (00:27)
[2019-04-11] MEDS ORDERED: FAMOTIDINE 20 MG/2 ML VIAL IV ONE (00:28)
[2019-04-11] MEDS ORDERED: METOPROLOL TARTRATE 5 MG/5 ML INJ IV ONE (00:29)
[2019-04-11 00:55] LABS: Albumin 3.9 g/dL (3.4-5.0); Bilirubin Direct 0.2 mg/dL (0-0.2); Bilirubin Total 0.5 mg/dL (0.2-1.0); Magnesium 1.8 mg/dL (1.8-2.4); Potassium 3.7 mmol/L (3.5-5.1); Protein, Total 7.3 g/dL (6.4-8.2); Troponin (Emerg Dept Use Only) 0.13 ng/mL (0.0-0.045)
--- NOTE | 2019-04-11 01:56 | EDPHYS ---
Physician Documentation [facility] Name: Puja Stuart Age: 68 yrs Sex: Female : 1950 Arrival Date: 04/10/2019 Time: 23:23 Bed 2 Private MD: ED Physician Zan Molina HPI: 04/10 23:29 This 68 yrs old Female presents to ER via Unassigned with complaints of sob carmen and cp. 23:29 The patient has shortness of breath at rest, with light activity. Onset: The carmen symptoms/episode began/occurred just prior to arrival, 4 hour(s) ago. Duration: The symptoms are continuous, and are steadily getting worse. The patient's shortness of breath has no apparent modifying factors, is aggravated by nothing, is alleviated by nothing. The patient or guardian reports chest pain that is located primarily in the anterior chest wall, bilaterally. Onset: 4 hour(s) ago. The pain does not radiate. Severity of symptoms: At their worst the symptoms were mild in the emergency department the symptoms are unchanged. Historical: - Allergies: 23:32 No Known Allergies; jd3 - Home Meds: 23:32 atorvastatin 40 mg oral tab [Active]; metformin 1,000 mg Oral tr24 [Active]; metoprolol jd3 tartrate 50 mg Oral tab [Active]; Lisinopril Oral [Active]; - PMHx: 23:32 Diabetes - NIDDM; Hypertension; jd3 - PSHx: 23:32 None; jd3 - Immunization history:: Adult Immunizations up to date. - Social history:: Smoking status: Patient/guardian denies using tobacco. - Ebola Screening: : Patient negative for fever greater than or equal to 101.5 degrees Fahrenheit, and additional compatible Ebola Virus Disease symptoms. ROS: 23:29 Constitutional: Negative for fever, chills, and weight loss, Eyes: Negative for injury, carmen pain, redness, and discharge, ENT: Negative for injury, pain, and discharge, Neck: Negative for injury, pain, and swelling. 23:29 Cardiovascular: Positive for chest pain, palpitations. 23:29 Respiratory: Positive for cough, shortness of breath, at rest. Exam: 23:29 Head/Face: Normocephalic, atraumatic. Eyes: Pupils equal round and reactive to light, carmen extra-ocular motions intact. Lids and lashes normal. Conjunctiva and sclera are non-icteric and not injected. Cornea within normal limits. Periorbital areas with no swelling, redness, or edema. ENT: Nares patent. No nasal discharge, no septal abnormalities noted. Tympanic membranes are normal and external auditory canals are clear. Oropharynx with no redness, swelling, or masses, exudates, or evidence of obstruction, uvula midline. Mucous membranes moist. Neck: Trachea midline, no thyromegaly or masses palpated, and no cervical lymphadenopathy. Supple, full range of motion without nuchal rigidity, or vertebral point tenderness. No Meningismus. Chest/axilla: Normal chest wall appearance and motion. Nontender with no deformity. No lesions are appreciated. Abdomen/GI: Soft, non-tender, with normal bowel sounds. No distension or tympany. No guarding or rebound. No evidence of tenderness throughout. Back: No spinal tenderness. No costovertebral tenderness. Full range of motion. Female : Normal external genitalia. MS/ Extremity: Pulses equal, no cyanosis. Neurovascular intact. Full, normal range of motion. Neuro: Awake and alert, GCS 15, oriented to person, place, time, and situation. Cranial nerves II-XII grossly intact. Motor strength 5/5 in all extremities. Sensory grossly intact. Cerebellar exam normal. Normal gait. Psych: Awake, alert, with orientation to person, place and time. Behavior, mood, and affect are within normal limits. 23:29 Constitutional: The patient appears in obvious distress, moderately distressed. 23:29 Respiratory: mild respiratory distress is noted, moderate respiratory distress is noted, Respirations: labored breathing, that is moderate, Breath sounds: rhonchi, wheezing: expiratory 23:29 Skin: Appearance: Temperature: cool, Moisture: diaphoretic, petechiae, not noted, ecchymosis, not noted, flushing, not noted. Vital Signs: 23:25 BP 124 / 74; Pulse 148; Resp 40 S; Temp 98.6(O); Pulse Ox 90% on 8 lpm NC; Weight 68.04 jd3 kg (R); Height 5 ft. 0 in. (152.40 cm) (R); Pain 5/10; 23:30 BP 129 / 74; Pulse 131; Resp 18 S; Pulse Ox 99% on BiPAP; [facility] 04/11 00:30 BP 101 / 70; Pulse 107; Resp 17 S; Pulse Ox 98% on 50% BiPAP; [facility] 01:30 BP 110 / 72; Pulse 98; Resp 19 S; Pulse Ox 100% on 50% BiPAP; bb 02:27 BP 108 / 72; Pulse 95; Resp 18 S; Pulse Ox 100% on 50% BiPAP; bb 03:28 BP 104 / 67; Pulse 79; Resp 17 S; Pulse Ox 99% on 50% BiPAP; [facility] 04/10 23:25 Body Mass Index 29.29 (68.04 kg, 152.40 cm) [facility] MDM: 04/10 23:27 Patient medically screened. [facility] 23:32 Data reviewed: vital signs, nurses notes, lab test result(s), EKG, radiologic studies. [facility] 04/10 23:29 Order name: Basic Metabolic Panel; Complete Time: 00:57 [facility] 04/10 23:29 Order name: CBC with Diff; Complete Time: 23:59 [facility] 04/10 23:29 Order name: LFT's; Complete Time: 00:57 [facility] 04/10 23:29 Order name: Magnesium; Complete Time: 00:57 [facility] 04/10 23:29 Order name: NT PRO-BNP; Complete Time: 00:57 [facility] 04/10 23:29 Order name: PT-INR; Complete Time: 23:59 [facility] 04/10 23:29 Order name: Troponin (emerg Dept Use Only); Complete Time: 00:57 [facility] 04/10 23:29 Order name: XRAY Chest (1 view) [facility] 04/10 23:29 Order name: BIPAP [facility] 04/10 23:29 Order name: ABG; Complete Time: 01:50 [facility] 04/11 00:11 Order name: Blood Culture Adult (2) [facility] 04/11 03:11 Order name: Troponin I [facility] 04/11 03:11 Order name: Troponin I [facility] 04/11 03:11 Order name: Troponin I [facility] 04/10 23:29 Order name: EKG; Complete Time: 23:29 [facility] 04/10 23:29 Order name: Cardiac monitoring; Complete Time: 23:41 [facility] 04/11 03:13 Order name: CONS Physician Consult [facility] 04/11 03:13 Order name: Heart Healthy [facility] 04/11 03:13 Order name: Echo with Doppler [facility] 04/11 03:13 Order name: EKG Electrocardiogram [facility] 04/11 03:13 Order name: EKG Electrocardiogram [facility] 04/10 23:29 Order name: EKG - Nurse/Tech; Complete Time: 23:41 [facility] 04/10 23:29 Order name: IV Saline Lock; Complete Time: 23:41 [facility] 04/10 23:29 Order name: Labs collected and sent; Complete Time: 23:41 [facility] 04/10 23:29 Order name: O2 Per Protocol; Complete Time: 23:41 [facility] 04/10 23:29 Order name: O2 Sat Monitoring; Complete Time: 23:41 [facility] 04/10 23:29 Order name: Hays; Complete Time: 00:20 [facility] Administered Medications: 23:40 Drug: Lasix 40 mg Route: IVP; Site: right hand; jd3 04/11 00:58 Follow up: Response: No adverse reaction bb 00:10 Drug: morphine 2 mg Route: IVP; Site: right hand; bb 00:50 Follow up: Response: No adverse reaction; Pain is decreased; RASS: Alert and Calm (0) bb 00:10 Drug: Zofran 4 mg Route: IVP; Site: right hand; bb 00:50 Follow up: Response: No adverse reaction bb 00:50 Not Given (Hemodynamic Parameters): Lopressor 2.5 mg IVP once; Hold for SBP <100 or HR bb <60. 00:50 Not Given (Hemodynamic Parameters): Lopressor 2.5 mg IVP once; Hold for SBP <100 or HR bb <60. 00:50 Not Given (Hemodynamic Parameters): Nitro-Bid Ointment 2 % 0.5 inches Transdermal once bb 00:57 Drug: Pepcid 20 mg Route: IVP; Site: right hand; bb 01:50 Follow up: Response: No adverse reaction jd3 00:58 Drug: Lovenox 1 mg/kg Route: Sub-Q; Site: abdomen; bb 01:50 Follow up: Response: No adverse reaction jd3 02:16 Drug: Lopressor 25 mg Route: PO; jd3 03:15 Follow up: Response: No adverse reaction jd3 Disposition: 04/11/19 01:54 Hospitalization ordered by Nathalia Goddard for Inpatient Admission. Preliminary diagnosis are Chest pain, unspecified, Angina pectoris, Unspecified combined systolic (congestive) and diastolic (congestive) heart failure, Tachycardia, unspecified, Type 2 diabetes mellitus. - Bed requested for Telemetry/MedSurg (Inpatient). - Status is Inpatient Admission. jd3 - Condition is Fair. - Problem is new. - Symptoms have improved. UTI on Admission? No Signatures: Dispatcher [employer] EDZan Morris MD MD cha Ballard, Brenda, RN RN Trinity Pacheco RN RN Lucas Stockton RN RN jd3 Corrections: (The following items were deleted from the chart) 03:18 01:54 Hospitalization Ordered by Nathalia Goddard MD for Inpatient Admission. Preliminary cg diagnosis is Chest pain, unspecified; Angina pectoris; Unspecified combined systolic (congestive) and diastolic (congestive) heart failure; Tachycardia, unspecified; Type 2 diabetes mellitus. Bed requested for Telemetry/MedSurg (Inpatient). Status is Inpatient Admission. Condition is Fair. Problem is new. Symptoms have improved. UTI on Admission? No. [facility] 04:03 03:18 04/11/2019 01:54 Hospitalization Ordered by Nathalia Goddard MD for Inpatient jd3 Admission. Preliminary diagnosis is Chest pain, unspecified; Angina pectoris; Unspecified combined systolic (congestive) and diastolic (congestive) heart failure; Tachycardia, unspecified; Type 2 diabetes mellitus. Bed requested for Telemetry/MedSurg (Inpatient). Status is Inpatient Admission. Condition is Fair. Problem is new. Symptoms have improved. UTI on Admission? No. cg
--- NOTE | 2019-04-11 01:56 | ER ---
Nurse's Notes [facility] Name: Puja Stuart Age: 68 yrs Sex: Female : 1950 Arrival Date: 04/10/2019 Time: 23:23 Bed 2 Private MD: Diagnosis: Chest pain, unspecified;Angina pectoris;Unspecified combined systolic (congestive) and diastolic (congestive) heart failure;Tachycardia, unspecified;Type 2 diabetes mellitus Presentation: 04/10 23:25 Presenting complaint: EMS states: "she has been feeling short of breath with mild pain jd3 to the chest since 0. as we were working on her she seemed to get more short of breath complaining of of neck and chest tightness. she had a high heart rate and we gave 10 mg of diltiazem, 4 baby aspirin and an A\\T\\A treatment.". Transition of care: patient was not received from another setting of care. Onset of symptoms was April 10, 2019. Risk Assessment: Do you want to hurt yourself or someone else? Patient reports no desire to harm self or others. Initial Sepsis Screen: Does the patient meet any 2 criteria? RR > 20 per min. HR > 90 bpm. Does the patient have a suspected source of infection? No. Patient's initial sepsis screen is negative. Care prior to arrival: Medication(s) given: Albuterol Neb ASA, 81 mg, x 4, IV initiated. 22 GA, in the right hand, Med neb given. Oxygen administered. via nasal cannula, via a nebulizer mask. 23:25 Method Of Arrival: EMS: [facility] jd3 23:25 Acuity: VIOT 1 jd3 Historical: - Allergies: 23:32 No Known Allergies; jd3 - Home Meds: 23:32 atorvastatin 40 mg oral tab [Active]; metformin 1,000 mg Oral tr24 [Active]; metoprolol jd3 tartrate 50 mg Oral tab [Active]; Lisinopril Oral [Active]; - PMHx: 23:32 Diabetes - NIDDM; Hypertension; jd3 - PSHx: 23:32 None; jd3 - Immunization history:: Adult Immunizations up to date. - Social history:: Smoking status: Patient/guardian denies using tobacco. - Ebola Screening: : Patient negative for fever greater than or equal to 101.5 degrees Fahrenheit, and additional compatible Ebola Virus Disease symptoms. Screenin:44 Abuse screen: Denies threats or abuse. Nutritional screening: No deficits noted. bb Tuberculosis screening: No symptoms or risk factors identified. Fall Risk None identified. Assessment: 23:42 General: Appears distressed, Behavior is cooperative, anxious. Pain: Complains of pain bb in chest. Neuro: Level of Consciousness is awake, alert, obeys commands, Oriented to person, place, time, situation. Cardiovascular: Heart tones S1 S2 present Capillary refill < 3 seconds Rhythm is sinus tachycardia. Respiratory: Airway is patent Respiratory effort is labored, Respiratory pattern is tachypnea Breath sounds with crackles bilaterally. GI: Abdomen is non-distended. Derm: Skin is diaphoretic, Skin is pale, Skin temperature is cool. Musculoskeletal: Circulation, motion, and sensation intact. 04/11 00:59 Reassessment: Patient and/or family updated on plan of care and expected duration. Pain bb level reassessed. pt states she is feeling better than on arrival she is tolerating the bipap well, resp less labored, bilateral breath sounds with crackles. IV sites intact, patent, family at bedside, awaiting diagnostic results. 02:27 Reassessment: Patient and/or family updated on plan of care and expected duration. Pain bb level reassessed. pt is A\\T\\O x 4, resp less labored, Bipap in place and pt tolerating well, IV sites intact with no erythema or edema noted, pt and family instructed on need for admit by Dr Molina and verbalized understanding of while agreeing to plan of care. Awaiting room assignment. 03:28 Reassessment: Patient appears in no apparent distress at this time. No changes from jd3 previously documented assessment. Patient and/or family updated on plan of care and expected duration. Pain level reassessed. Patient states feeling better. Vital Signs: 04/10 23:25 BP 124 / 74; Pulse 148; Resp 40 S; Temp 98.6(O); Pulse Ox 90% on 8 lpm NC; Weight 68.04 jd3 kg (R); Height 5 ft. 0 in. (152.40 cm) (R); Pain 5/10; 23:30 BP 129 / 74; Pulse 131; Resp 18 S; Pulse Ox 99% on BiPAP; jd3 04/11 00:30 BP 101 / 70; Pulse 107; Resp 17 S; Pulse Ox 98% on 50% BiPAP; jd3 01:30 BP 110 / 72; Pulse 98; Resp 19 S; Pulse Ox 100% on 50% BiPAP; bb 02:27 BP 108 / 72; Pulse 95; Resp 18 S; Pulse Ox 100% on 50% BiPAP; bb 03:28 BP 104 / 67; Pulse 79; Resp 17 S; Pulse Ox 99% on 50% BiPAP; jd3 04/10 23:25 Body Mass Index 29.29 (68.04 kg, 152.40 cm) [facility] ED Course: 04/10 23:23 Patient arrived in ED. carmen 23:25 Lucas Stockton, LEODAN is Primary Nurse. j 23:27 Zan Molina MD is Attending Physician. carmen 23:30 Triage completed. [facility] 23:32 Arm band placed on. EKG completed in triage. Results shown to MD. [facility] 23:45 Patient has correct armband on for positive identification. Placed in gown. Bed in low jd3 position. Call light in reach. Side rails up X2. Adult w/ patient. 23:45 Patient has correct armband on for positive identification. Placed in gown. Bed in low bb position. Call light in reach. Side rails up X2. quality assurance monitor final on. Pulse ox on. NIBP on. 23:45 Initial lab(s) drawn, by me, sent to lab. EKG done, by ED staff, reviewed by Zan Molina MD. Inserted saline lock: 22 gauge in left wrist, using aseptic technique. Blood collected. Maintain EMS IV. Dressing intact. Site clean \\T\\ dry. Gauge \\T\\ site: 22 g right hand. 04/11 00:00 Hays cath inserted, using sterile technique, 16 Fr., by me, balloon inflated, to bb gravity drainage, Patient tolerated well. 01:51 Nathalia Goddard MD is Hospitalizing Provider. carmen 02:29 No provider procedures requiring assistance completed. Patient admitted, IV remains in bb place. 03:32 XRAY Chest (1 view) In Process Unspecified. EDMS Administered Medications: 04/10 23:40 Drug: Lasix 40 mg Route: IVP; Site: right hand; j 04/11 00:58 Follow up: Response: No adverse reaction bb 00:10 Drug: morphine 2 mg Route: IVP; Site: right hand; bb 00:50 Follow up: Response: No adverse reaction; Pain is decreased; RASS: Alert and Calm (0) bb 00:10 Drug: Zofran 4 mg Route: IVP; Site: right hand; bb 00:50 Follow up: Response: No adverse reaction bb 00:50 Not Given (Hemodynamic Parameters): Lopressor 2.5 mg IVP once; Hold for SBP <100 or HR bb <60. 00:50 Not Given (Hemodynamic Parameters): Lopressor 2.5 mg IVP once; Hold for SBP <100 or HR bb <60. 00:50 Not Given (Hemodynamic Parameters): Nitro-Bid Ointment 2 % 0.5 inches Transdermal once bb 00:57 Drug: Pepcid 20 mg Route: IVP; Site: right hand; bb 01:50 Follow up: Response: No adverse reaction jd3 00:58 Drug: Lovenox 1 mg/kg Route: Sub-Q; Site: abdomen; bb 01:50 Follow up: Response: No adverse reaction jd3 02:16 Drug: Lopressor 25 mg Route: PO; jd3 03:15 Follow up: Response: No adverse reaction jd3 Output: 01:23 Urine: 1000ml (Hays); Total: 1000ml. bb 03:48 Urine: 775ml (Hays); Total: 1775ml. Outcome: 01:54 Decision to Hospitalize by Provider. [facility] 02:29 Instructed on the need for admit. bb 02:29 Condition: stable bb 03:38 Admitted to Tele accompanied by tech, via stretcher, room 409, with oxygen, with chart, jd3 Report called to Rebekah ALCOCER 04:03 Patient left the ED. jd3 Signatures: Dispatcher [employer] EDMS Zan Molina MD MD cha Chretien, Felicia, RN RN Michaelle Escalante RN RN Lucas Carnes RN RN jd3 Corrections: (The following items were deleted from the chart) 04/10 23:33 23:30 Resp 18bpm; Spontaneous; Pulse Ox 99% BiPAP; jd3 jd3 23:45 23:25 Acuity: VITO 2 jd3 jd3
[2019-04-11] MEDS ORDERED: METOPROLOL TAR 25 MG TAB ONE (02:13)
[2019-04-11] MEDS ORDERED: ALPRAZOLAM 0.25 MG TABLET PO PRN (03:08)
[2019-04-11] MEDS ORDERED: MORPHINE 4 MG/ML SYR IV PRN (03:08)
[2019-04-11 04:20] VITALS: BMI 4285.5
[2019-04-11] MEDS ORDERED: REGADENOSON 0.4 MG/5 ML SYR IV ONE (07:50)
[2019-04-11] MEDS ORDERED: MORPHINE 2 MG/ML SYR IV PRN (07:51)
--- NOTE | 2019-04-11 08:08 | RAD REPORT ---
EXAM DESCRIPTION: Mariann Single View04/11/2019 3:32 am CLINICAL HISTORY: Shortness breath COMPARISON: February 2019 FINDINGS: [id number] bilateral pulmonary opacities are present. The heart is moderately enlar ged IMPRESSION: Mild to moderate CHF
[2019-04-11] MEDS ORDERED: METOPROLOL TAR 50 MG TAB PO SCH (09:00)
[2019-04-11] MEDS: ENOXAPARIN 40 MG/0.4 ML SQ SCH (09:31)
[2019-04-11] MEDS: ASPIRIN EC 81 MG TAB PO SCH (09:31)
--- NOTE | 2019-04-11 10:21 | P.HP ---
Certification for Inpatient Patient admitted to: Observation With expected LOS: <2 Midnights Patient will require the following post-hospital care: None Practitioner: I am a practitioner with admitting privileges, knowledge of patient current condition, hospital course, and medical plan of care. Services: Services provided to patient in accordance with Admission requirements found in Title 42 Section 412.3 of the Code of Federal Regulations Patient History Date of Service: 04/11/19 Reason for admission: CHEST PAIN RULE OUT ACUTE CORONARY SYNDROME History of Present Illness: Patient is 68-year-old female came to the hospital with chest discomfort. Patient has history of hypertension and diabetes it was diagnosed a month and a half ago with nonischemic cardiomyopathy. Patient had a cardiac catheterization done in the beginning of February of 2019 with no evidence of coronary artery disease. Ejection fraction was 40%. Patient was admitted this time with chest discomfort. Her EKG did not reveal any acute abnormalities. Patient troponins are elevated however. Patient be admitted to the hospital for further evaluation. With patient's recent cardiac catheterization not on think patient needs any intervention. We may need to give better control over cardiac disease. Will Consult Cardiology and see if patient needs any further intervention. If the patient may be able to discharge with nitro along with continued cardiac meds. Await further recommendations per Cardiology. Allergies No Known Allergies Allergy (Verified 04/11/19 04:04) Home Medications: Metformin ER [Glucophage ER*] 1,000 mg PO BID 02/22/19 Atorvastatin Calcium [Lipitor] 40 mg PO BEDTIME #30 tab 02/26/19 Lisinopril [Prinivil*] 20 mg PO DAILY #30 tab 02/26/19 Metoprolol Tartrate [Lopressor*] 50 mg PO BID 6AM 6PM #60 tab 02/26/19 - Past Medical/Surgical History Has patient received pneumonia vaccine in the past: No Diabetic: Yes -: Diabetes mellitus type 2 non insulin dependent -: Hypertension -: Cardiomegaly -: Arthritis -: Former tobacco use -: Hysterectomy -: Appendectomy -: skin cancer removal from neck Psychosocial/ Personal History: Patient is . She does not work - Family History Father Medical History: Lung disease Mother Medical History: Lung disease - Social History Smoking Status: Unknown if ever smoked Alcohol use: No CD- Drugs: No Caffeine use: Yes Place of Residence: Home Review of Systems 10-point ROS is otherwise unremarkable Physical Examination - Vital Signs Temperature: 97.5 F Blood Pressure: 112/59 Pulse: 86 Respirations: 20 Pulse Ox (%): 98 - Physical Exam General: Alert, In no apparent distress, Oriented x3 HEENT: Atraumatic, PERRLA, Mucous membr. moist/pink, EOMI, Sclerae nonicteric Neck: Supple, 2+ carotid pulse no bruit, No LAD, Without JVD or thyroid abnormality Respiratory: Clear to auscultation bilaterally, Normal air movement Cardiovascular: Regular rate/rhythm, Normal S1 S2, No murmurs Gastrointestinal: Normal bowel sounds, Soft and benign, Non-distended, No tenderness Musculoskeletal: No clubbing, No swelling, No tenderness Integumentary: No rashes Neurological: Normal gait, Normal speech, Normal strength at 5/5 x4 extr, Normal tone, Sensation intact, Cranial nerves 3-12 intact, Normal affect Lymphatics: No axilla or inguinal lymphadenopathy - Studies Laboratory Data (last 24 hrs) 04/11/19 05:40: Troponin I 1.09 H* 04/11/19 00:15: Sodium 140, Potassium 3.7, BUN 14, Creatinine 0.89, Glucose 271 H, Magnesium 1.8, Total Bilirubin 0.5, AST 82 H, ALT 82 H, Alkaline Phosphatase 129 H 04/10/19 23:30: PT 11.7, INR 0.99 04/10/19 23:30: WBC 10.8, Hgb 12.6, Hct 37.9, Plt Count 297 Assessment & Plan - Problems (Diagnosis) (1) Nonischemic cardiomyopathy Current Visit: Yes Status: Acute (2) Angina pectoris Current Visit: Yes Status: Acute (3) History of diabetes mellitus, type II Current Visit: Yes Status: Acute (4) History of hypertension Current Visit: Yes Status: Acute - Plan 1. Serial troponins and EKG 2. Cardiology consultation 3. Echocardiogram 4. Anti-platelet therapy, beta-hailey, statin, and O2 as needed 5. IV morphine for pain 6. Nitro p.r.n. Discharge Plan: Home Plan to discharge in: 24 Hours - Advance Directives Does patient have a Living Will: No Does patient have a Durable POA for Healthcare: No - Code Status/Comfort Care Code Status Assessed: Yes Code Status: Full Code Critical Care: No Time Spent Managing PTS Care (In Minutes): 45
[2019-04-11 10:39] LABS: Urine Appearance CLEAR; Urine Bilirubin NEGATIVE (NEG); Urine Blood 3+ (NEG); Urine Color YELLOW; Urine Glucose NEGATIVE (NEG); Urine Protein NEGATIVE (NEG); Urine Specific Gravity 1.015 (1.005-1.030); Urine Urobilinogen 0.2 mg/dL (0.2-1.0); Urine pH 5.5 (5.0-7.0)
[2019-04-11 11:22] LABS: Urine Microscopic Reflex ORDER UMIC
[2019-04-11 12:03] LABS: Urine Bacteria 20-50 /HPF (<20); Urine Culture Reflex Order REFLEXED; Urine Mucus 2+ /HPF (NONE SEEN); Urine RBC 20-50 /HPF (NONE SEEN)
[2019-04-11] MEDS: FUROSEMIDE 40 MG TABLET PO SCH (12:15)
[2019-04-11] MEDS: SPIRONOLACTONE 25 MG TABLET PO SCH (12:16)
[2019-04-11] MEDS: ISOSORBIDE MONO SR 30 MG TAB PO SCH (12:16)
--- NOTE | 2019-04-11 12:19 | ECHO ---
HEIGHT:5 ft 0 in WEIGHT: 152 lb 6.4 oz DATE OF STUDY: 04/11/[address]: Nathalia Goddard MD 2-DIMENSIONAL: YES M.MODE: YES DOPPLER: YES COLOR FLOW: YES TDS: NO PORTABLE: NO DEFINITY: NO BUBBLE STUDY: NO DIAGNOSIS: CONGESTIVE HEART FAILURE/ CHEST PAIN CARDIAC HISTORY: CATHERIZATION: YES SURGERY: NO PROSTHETIC VALVE: NO PACEMAKER: NO MEASUREMENTS (cm) DIASTOLIC (NORMALS) SYSTOLIC (NORMALS) IVSd 0.8 (0.6-1.2) LA Diam 4.0 (1.9-4.0) LVEF 20% LVIDd 7.1 (3.5-5.7) LVIDs 6.4 (2.0-3.5) %FS 9% LVPWd 1.0 (0.6-1.2) Ao Diam 2.4 (2.0-3.7) 2 DIMENSIONAL ASSESSMENT: RIGHT ATRIUM: NORMAL LEFT ATRIUM: DILATED RIGHT VENTRICLE: NORMAL LEFT VENTRICLE: DILATED TRICUSPID VALVE: NORMAL MITRAL VALVE: NORMAL PULMONIC VALVE: NORMAL AORTIC VALVE: NORMAL PERICARDIAL EFFUSION: NONE AORTIC ROOT: NORMAL LEFT VENTRICULAR WALL MOTION: SEVER GLOBAL HYPOKINESIS. DOPPLER/COLOR FLOW: MILD MITRAL AND TRICUSPID REGURGITATION. COMMENTS: MILD MITRAL AND TRICUSPID REGURGITATION. SEVERE GLOBAL HYPOKINESIS. EJECTION FRACTION 20%. LEFT VENTRICULAR DILATATION. TECHNOLOGIST: MARA DUENAS
[2019-04-11] MEDS: ACETAMINOPHEN 500 MG TAB PO PRN (12:23)
[2019-04-11] MEDS: METFORMIN ER 500 MG TAB PO SCH (16:12)
[2019-04-11] MEDS ORDERED: ATORVASTATIN 40 MG TAB PO SCH (21:00)
[2019-04-11] MEDS: METOPROLOL TAR 25 MG TAB PO SCH (21:23)
[2019-04-12] MEDS: ASPIRIN EC 81 MG TAB PO SCH (07:39)
[2019-04-12] MEDS: METFORMIN ER 500 MG TAB PO SCH ×2 (07:39→16:09)
[2019-04-12] MEDS: METOPROLOL TAR 25 MG TAB PO SCH (07:39)
[2019-04-12] MEDS: SPIRONOLACTONE 25 MG TABLET PO SCH (07:40)
[2019-04-12] MEDS: ENOXAPARIN 40 MG/0.4 ML SQ SCH (07:40)
[2019-04-12] MEDS: FUROSEMIDE 40 MG TABLET PO SCH (07:40)
[2019-04-12] MEDS: ISOSORBIDE MONO SR 30 MG TAB PO SCH (07:40)
[2019-04-12] MEDS ORDERED: lisinopriL 20 MG TAB PO SCH (09:00)
[2019-04-12] MEDS ORDERED: lisinopriL 5 MG TAB PO SCH (09:00)
[2019-04-12] MEDS: ACETAMINOPHEN 500 MG TAB PO PRN ×2 (09:28→16:37)
--- NOTE | 2019-04-12 10:25 | P.DS ---
Discharge Date: 04/12/19 Disposition: ROUTINE DISCHARGE Discharge Condition: GOOD Reason for Admission: CHEST PAIN RULE OUT ACUTE CORONARY SYNDROME Consultations: Cardiology - Problems (1) Nonischemic cardiomyopathy Current Visit: Yes Status: Acute (2) Angina pectoris Current Visit: Yes Status: Acute (3) History of diabetes mellitus, type II Current Visit: Yes Status: Acute (4) History of hypertension Current Visit: Yes Status: Acute Brief History of Present Illness: Patient is 68-year-old female came to the hospital with chest discomfort. Patient has history of hypertension and diabetes it was diagnosed a month and a half ago with nonischemic cardiomyopathy. Patient had a cardiac catheterization done in the beginning of February of 2019 with no evidence of coronary artery disease. Ejection fraction was 40%. Patient was admitted this time with chest discomfort. Her EKG did not reveal any acute abnormalities. Patient troponins are elevated however. Patient be admitted to the hospital for further evaluation. With patient's recent cardiac catheterization not on think patient needs any intervention. We may need to give better control over cardiac disease. Will Consult Cardiology and see if patient needs any further intervention. If the patient may be able to discharge with nitro along with continued cardiac meds. Await further recommendations per Cardiology. Hospital Course: Patient was found to have ejection fraction of 20% which is down from the ejection fraction of 40% 6 weeks ago. Patient with nonischemic cardiomyopathy. Medications have been adjusted by Cardiology. At this time, patient is stable for discharge. Close outpatient follow with Cardiology. Patient may benefit from pacemaker and defibrillator which will be arranged as an outpatient. Return to the ER if symptoms worsen. Vital Signs/Physical Exam: Temp Pulse Resp BP Pulse Ox 98.3 F 95 H 18 121/73 96 04/12/19 08:00 04/12/19 08:00 04/12/19 08:00 04/12/19 08:00 04/12/19 08:00 General: Alert, In no apparent distress, Oriented x3 Laboratory Data at Discharge: WBC 10.8 K/uL (4.3-10.9) 04/10/19 23:30 Hgb 12.6 g/dL (12.0-15.0) 04/10/19 23:30 Hct 37.9 % (36.0-45.0) 04/10/19 23:30 Plt Count 297 K/uL (152-406) 04/10/19 23:30 PT 11.7 SECONDS (9.5-12.5) 04/10/19 23:30 INR 0.99 04/10/19 23:30 Sodium 140 mmol/L (136-145) 04/11/19 00:15 Potassium 3.7 mmol/L (3.5-5.1) 04/11/19 00:15 BUN 14 mg/dL (7-18) 04/11/19 00:15 Creatinine 0.89 mg/dL (0.55-1.3) 04/11/19 00:15 Glucose 271 mg/dL (74-106) H 04/11/19 00:15 Magnesium 1.8 mg/dL (1.8-2.4) 04/11/19 00:15 Total Bilirubin 0.5 mg/dL (0.2-1.0) 04/11/19 00:15 AST 82 U/L (15-37) H 04/11/19 00:15 ALT 82 U/L (12-78) H 04/11/19 00:15 Alkaline Phosphatase 129 U/L (45-117) H 04/11/19 00:15 Troponin I 0.43 ng/mL (0.0-0.045) H 04/12/19 05:53 Home Medications: Metformin ER [Glucophage ER*] 1,000 mg PO BID 02/22/19 Atorvastatin Calcium [Lipitor] 40 mg PO BEDTIME #30 tab 02/26/19 Atorvastatin Calcium [Lipitor] 40 mg PO BEDTIME tab 04/11/19 Metoprolol Tartrate [Lopressor] 12.5 mg PO BID #30 tab 04/11/19 Furosemide [Lasix*] 40 mg PO DAILY #30 tab 04/12/19 Spironolactone [Aldactone*] 25 mg PO DAILY #30 tab 04/12/19 New Medications: Furosemide [Lasix*] 40 mg PO DAILY #30 tab Metoprolol Tartrate [Lopressor] 12.5 mg PO BID #30 tab Spironolactone [Aldactone*] 25 mg PO DAILY #30 tab Patient Discharge Instructions: OK TO DC IV AND DC HOME. FOLLOW-UP WITH PRIMARY CARE PROVIDER IN 1-2 WEEKS. FOLLOW-UP WITH CARDIOLOGY IN 1-2 WEEKS. RETURN TO THE ER IF symptoms worsens. CALL or TEXT DR. GOLDSMITH AT [phone] IF ANY QUESTIONS REGARDING HOSPITAL STAY. PLEASE CALL THE FLOOR AT [phone] IF ANY MEDICATION OR NURSING QUESTIONS. Diet: AHA Activity: Fall precautions Time spent managing pt's care (in minutes): 30
[2019-04-12 16:07] VITALS: O2SAT 99
[2019-04-12 16:43] VITALS: BP 125/75; TEMP 97
[2019-04-12] MEDS ORDERED: PNEUMOCOCCAL VACCINE 0.5 ML IMVAC ONE (18:00)
--- NOTE | 2019-04-13 00:01 | CON ---
Date of Consultation: 04/11/[address] Goddard's service on 04/11/2019. I saw the patient on 04/11/2019. Reason For Consultation: Chest pain. History Of Present Illness: Ms. Stuart is a 68-year-old woman with history of congesti ve heart failure, normal coronaries, ejection fraction about 40% in February of 2019, came in with natalio st pain that is substernal. No radiation associated with shortness of breath and diaphoresis, but no nausea or vomiting. Denied PND, orthopnea, pedal edema, palpitations, or syncope. Troponin was 1.0 9. BNP was 2495 and new echocardiogram which was done today showed an ejection fraction about 2019 tab 20-25 percent, which might which is much worse than it was a month ago. Past Medical History: Include CHF, dyslipidemia. Allergies: NONE. Review of Systems: Negative. Social History: Negative. Family History: Noncontributory. Medications: At home include lisinopril, metoprolol, metformin, and Lipitor. Physical Examination: General: She was asymptomatic when I saw her. Vital Signs: Stable. Afebrile. HEENT: Negative. Neck: Supple without any bruit, lymphadenopathy, JVD, or thyromegaly. Chest: Clear. Her chest reveals some rales at both bases. Cardiac: Revealed a regular rhythm and rate with an S3 gallops. No murmurs or rubs. Abdomen: Benign. Extremities: Revealed no clubbing, cyanosis, or edema. Laboratory Data: Her chest x-ray showed mild CHF. Troponin was mentioned earlier and so was the BNP . Creatinine was normal. Impression And Plan: Acute on chronic congestive heart failure, systolic that probably was causing h er chest pain. She had documented normal coronaries a month ago. Ejection fraction of 20% to 25%. She is on lisinopril, metoprolol, and I will add Aldactone and Lasix to her regimen. Metformin is us ed for her diabetes and Lipitor for her cholesterol, both of which are stable. The patient is feelin g better and certainly can go home whenever it is okay with Dr. Goddard. I will be happy to see her in the office in the next week or 2. KARLIE/RAYA Voice ID: [id number] Report ID: [id number]
== END 2019-04-12 17:20 | disposition home or self-care (01) | DRG 314 ==
LOC: ER 23:19 → 4TH 04-11 03:41 → OBSVTOIN 04-11 08:54
PROVIDERS: ADMIT Internal Medicine; ATTEND Hospitalist
DX: I42.8 Other cardiomyopathies (principal); I50.23 Acute on chronic systolic (congestive) heart failure; I20.9 Angina pectoris, unspecified; I10 Essential (primary) hypertension; E11.9 Type 2 diabetes mellitus without complications; I11.0 Hypertensive heart disease with heart failure; E78.5 Hyperlipidemia, unspecified
CPT/HCPCS: 36415; 51702; 71045; 80048; 80076; 81003; 81015; 82805; 82947; 83735; 83880; 84484; 85025; 85610; 87040; 87086; 87088; 93306; 94660; 96372; 96374; 96375; 99291; 99292; G0378; J1650; J1940; J2270; J2405; J2785

== ENCOUNTER 2019-11-24 10:56 | Inpatient (IN) | payer SELFPAY ==
[2019-11-24 11:19] LABS: Absolute Lymphocytes (CBC) 1.8 K/uL (0.7-4.9); Lymphocytes % 22.5 % (15.3-44.8); MPV 8.4 fL (7.6-11.3); RBC Red Blood Cell Count 3.51 M/uL (3.86-4.86)
--- NOTE | 2019-11-24 11:40 | ER ---
Nurse's Notes [facility] Name: Puja Stuart Age: 69 yrs Sex: Female : 1950 Arrival Date: 11/24/2019 Time: 11: Bed 8 Private MD: Diagnosis: Other chest pain;Type 2 diabetes mellitus;Essential (primary) hypertension Presentation: 11/23 11:01 Chief complaint: EMS states: Non-radiating, left sided chest pain started at 0900, pt jl7 reports "I feel like I'm drowning." Hx of pulmonary edema. Lung sounds clear, O2 sats 94-96 % on RA, BGL 324. 1 Nitro given in route with reported improvement of pain. Pt is Yoruba speaking only. Coronavirus screen: Proceed with normal triage. Patient denies a cough. Patient reports shortness of breath or difficulty breathing. Patient denies measured and/or subjective temperature greater than 100.4F prior to today's visit. Patient denies travel on a cruise ship or to a country the [facility] currently lists as an affected area. Patient denies contact with known and/or suspected case of COVID-19. Ebola Screen: No symptoms or risks identified at this time. Initial Sepsis Screen: Does the patient meet any 2 criteria? No. Patient's initial sepsis screen is negative. Does the patient have a suspected source of infection? No. Patient's initial sepsis screen is negative. Risk Assessment: Do you want to hurt yourself or someone else? Patient reports no desire to harm self or others. Onset of symptoms was November 24, 2019 at 09:00. Care prior to arrival: Medication(s) given: Normal saline infusion, 500 mL, IV initiated. 20 GA, in the right antecubital area, Glucose check: 324. 11:01 Method Of Arrival: EMS: [facility] jl7 11:01 Acuity: VITO 2 jl7 11:01 Transition of care: patient was not received from another setting of care. jl7 Triage Assessment: 11:08 General: Appears in no apparent distress. uncomfortable, Behavior is calm, cooperative, jl7 appropriate for age. Pain: Complains of pain in anterior aspect of left upper chest Pain does not radiate. Pain currently is 7 out of 10 on a pain scale. Quality of pain is described as pressure, Pain began 2 hours ago. Is continuous. Neuro: Level of Consciousness is awake, alert, obeys commands, Oriented to person, place, time, situation. Cardiovascular: Patient's skin is warm and dry. Respiratory: Airway is patent Respiratory effort is even, unlabored, Respiratory pattern is regular, symmetrical. Derm: Skin is pink, warm \\T\\ dry. Historical: - Allergies: 11:08 No Known Allergies; jl7 - Home Meds: 11:08 metoprolol tartrate 50 mg Oral tab [Active]; metformin 1,000 mg Oral tr24 [Active]; jl Isosorbide Dinitrate Oral [Active]; Spironolactone Oral [Active]; Lasix Oral [Active]; insulin pump [Active]; - PMHx: 11:08 Diabetes - NIDDM; Hypertension; jl7 - PSHx: 11:08 None; jl - Immunization history:: Adult Immunizations up to date. - Social history:: Smoking status: Patient denies any tobacco usage or history of. Screenin:04 Abuse screen: Denies threats or abuse. Denies injuries from another. Nutritional hb screening: No deficits noted. Tuberculosis screening: No symptoms or risk factors identified. Fall Risk None identified. Assessment: 11:54 Reassessment: Patient appears in no apparent distress at this time. No changes from hb previously documented assessment. Patient and/or family updated on plan of care and expected duration. Pain level reassessed. Patient is alert, oriented x 3, equal unlabored respirations, skin warm/dry/pink. Vital Signs: 11:01 BP 133 / 85; Pulse 80; Resp 19; Pulse Ox 97% ; Weight 69.85 kg; Pain 7/10; jl7 11:54 BP 120 / 62; Pulse 72; Resp 16; Pulse Ox 97% on R/A; Pain 6/10; hb 13:30 BP 95 / 47; Pulse 58; Resp 19; Pulse Ox 98% ; sv 14:00 BP 106 / 51; Pulse 57; Resp 22; Pulse Ox 98% ; sv 14:30 BP 103 / 57; Pulse 59; Resp 17; Pulse Ox 97% ; sv ED Course: 11:01 Patient arrived in ED. jl7 11:02 Patient maintains SpO2 saturation greater than 95% on room air. hb 11:04 Patient has correct armband on for positive identification. Placed in gown. Bed in low hb position. Call light in reach. manufacturer representative on. Pulse ox on. NIBP on. 11:04 Maintain EMS IV. Dressing intact. Good blood return noted. Site clean \\T\\ dry. Gauge \\T\\ hb site: 20g RAC. 11:[address] [facility] 11:08 Arm band placed on right wrist. [facility] 11:09 Zan Molina MD is Attending Physician. [facility] 11:09 EKG completed in triage. Results shown to MD. Labs ordered per protocol. Drawn by ED [facility] staff. 11:10 EKG done, by ED staff, reviewed by Zan Molina MD. [facility] 11:13 Soheila Poole, RN is Primary Nurse. [facility] 11:36 XRAY Chest (1 view) In Process Unspecified. EDPA 11:39 Juan Osborne DO is Hospitalizing Provider. carmen Administered Medications: 11:53 Drug: Aspirin Chewable Tablet 162 mg Route: PO; hb 11:53 Drug: Lovenox 1 mg/kg Route: Sub-Q; Site: abdomen; hb 11:53 Drug: morphine 2 mg Route: IVP; Site: right antecubital; hb 11:53 Drug: Zofran (Ondansetron) 4 mg Route: IVP; Site: right antecubital; hb Outcome: 11:40 Decision to Hospitalize by Provider. [facility] 14:55 Patient left the ED. iw Signatures: Dispatcher [employer] Tatum Shaw, LEODAN ALCOCER Zan Molina MD MD cha Williams, Irene, RN RN Freida Escalante RN RN Soheila Poole RN RN [facility]
--- NOTE | 2019-11-24 11:41 | EDPHYS ---
Physician Documentation [facility] Name: Puja Stuart Age: 69 yrs Sex: Female : 1950 Arrival Date: 11/24/2019 Time: 11:01 Bed 8 Private MD: ED Physician Zan Molina HPI: 11/23 11:34 This 69 yrs old Female presents to ER via EMS with complaints of Chest Pain > carmen 29 y/o. 11:34 The patient or guardian reports chest pain that is located primarily in the substernal carmen area, anterior chest wall, bilaterally. Onset: this morning. The pain does not radiate. Associated signs and symptoms: The patient has no apparent associated signs or symptoms. The chest pain is described as a heaviness. Severity of pain: At its worst the pain was mild in the emergency department the pain is unchanged. The patient has not experienced similar symptoms in the past. Historical: - Allergies: 11:08 No Known Allergies; jl7 - Home Meds: 11:08 metoprolol tartrate 50 mg Oral tab [Active]; metformin 1,000 mg Oral tr24 [Active]; jl7 Isosorbide Dinitrate Oral [Active]; Spironolactone Oral [Active]; Lasix Oral [Active]; insulin pump [Active]; - PMHx: 11:08 Diabetes - NIDDM; Hypertension; jl7 - PSHx: 11:08 None; jl7 - Immunization history:: Adult Immunizations up to date. - Social history:: Smoking status: Patient denies any tobacco usage or history of. ROS: 11:34 Constitutional: Negative for fever, chills, and weight loss, Eyes: Negative for injury, carmen pain, redness, and discharge, ENT: Negative for injury, pain, and discharge, Neck: Negative for injury, pain, and swelling, Respiratory: Negative for shortness of breath, cough, wheezing, and pleuritic chest pain, Abdomen/GI: Negative for abdominal pain, nausea, vomiting, diarrhea, and constipation, Back: Negative for injury and pain, : Negative for injury, bleeding, discharge, and swelling, MS/Extremity: Negative for injury and deformity, Skin: Negative for injury, rash, and discoloration, Neuro: Negative for headache, weakness, numbness, tingling, and seizure, Psych: Negative for depression, anxiety, suicide ideation, homicidal ideation, and hallucinations, Allergy/Immunology: Negative for hives, rash, and allergies, Endocrine: Negative for neck swelling, polydipsia, polyuria, polyphagia, and marked weight changes, Hematologic/Lymphatic: Negative for swollen nodes, abnormal bleeding, and unusual bruising. 11:34 Cardiovascular: Positive for chest pain, of the chest. Exam: 11:34 Constitutional: This is a well developed, well nourished patient who is awake, alert, carmen and in no acute distress. Head/Face: Normocephalic, atraumatic. Eyes: Pupils equal round and reactive to light, extra-ocular motions intact. Lids and lashes normal. Conjunctiva and sclera are non-icteric and not injected. Cornea within normal limits. Periorbital areas with no swelling, redness, or edema. ENT: Nares patent. No nasal discharge, no septal abnormalities noted. Tympanic membranes are normal and external auditory canals are clear. Oropharynx with no redness, swelling, or masses, exudates, or evidence of obstruction, uvula midline. Mucous membranes moist. Neck: Trachea midline, no thyromegaly or masses palpated, and no cervical lymphadenopathy. Supple, full range of motion without nuchal rigidity, or vertebral point tenderness. No Meningismus. Chest/axilla: Normal chest wall appearance and motion. Nontender with no deformity. No lesions are appreciated. Cardiovascular: Regular rate and rhythm with a normal S1 and S2. No gallops, murmurs, or rubs. Normal PMI, no JVD. No pulse deficits. Respiratory: Lungs have equal breath sounds bilaterally, clear to auscultation and percussion. No rales, rhonchi or wheezes noted. No increased work of breathing, no retractions or nasal flaring. Abdomen/GI: Soft, non-tender, with normal bowel sounds. No distension or tympany. No guarding or rebound. No evidence of tenderness throughout. Back: No spinal tenderness. No costovertebral tenderness. Full range of motion. Female : Normal external genitalia. Skin: Warm, dry with normal turgor. Normal color with no rashes, no lesions, and no evidence of cellulitis. MS/ Extremity: Pulses equal, no cyanosis. Neurovascular intact. Full, normal range of motion. Neuro: Awake and alert, GCS 15, oriented to person, place, time, and situation. Cranial nerves II-XII grossly intact. Motor strength 5/5 in all extremities. Sensory grossly intact. Cerebellar exam normal. Normal gait. Psych: Awake, alert, with orientation to person, place and time. Behavior, mood, and affect are within normal limits. 11:34 Musculoskeletal/extremity: DVT Exam: No signs of deep vein thrombosis. no pain, no swelling, no tenderness, negative Homans' sign noted on exam, no appreciated bluish discoloration, no erythema, no increased warmth. 11:41 ECG was reviewed by the Attending Physician. [facility] Vital Signs: 11:01 BP 133 / 85; Pulse 80; Resp 19; Pulse Ox 97% ; Weight 69.85 kg; Pain 7/10; jl7 11:54 BP 120 / 62; Pulse 72; Resp 16; Pulse Ox 97% on R/A; Pain 6/10; hb 13:30 BP 95 / 47; Pulse 58; Resp 19; Pulse Ox 98% ; sv 14:00 BP 106 / 51; Pulse 57; Resp 22; Pulse Ox 98% ; sv 14:30 BP 103 / 57; Pulse 59; Resp 17; Pulse Ox 97% ; sv MDM: 11:09 Patient medically screened. [facility] 11:35 Differential diagnosis: abnormal EKG, coronary artery disease chest wall pain, carmen cholecystitis, Cholelithiasis gastritis, gastroesophageal reflux disease (GERD), hiatal hernia, stable angina, unstable angina. HEART Score: History: Highly Suspicious (2), ECG: Non specific repolarization disturbance / LBTB / PM (1), Age: > or = 65 years (2), Risk Factors: > or = 3 Risk factors for atherosclerotic disease (2), [Hypercholesterolemia] [Hypertension] [DM] [+ Family HX] Troponin: < or = 1 x Normal Limit (0). The patient was given aspirin in the Emergency Department. The patient's deep vein thrombosis risk score was calculated as follows: Total Score: 0. This patient was found to be at low risk for a deep vein thrombosis by using the Well's assessment criteria. The patient's pulmonary embolism risk score was calculated as follows: Total Score: 0-2 points. This patient was found to be at low risk for a pulmonary embolism by using the Well's assessment criteria. TIM Risk Score: 1 - patient's age is greater or equal to 65 years, 1 - Three or more CAD risk factors, 1- Known CAD, 1 - ASA use in past 7 days, 1 - Recent [<24hrs] Severe Angina, 1 - Elevated Cardiac Markers, 1 - ST deviation >0.5mm, TOTAL SCORE = 0. Data reviewed: vital signs, nurses notes, lab test result(s), EKG, radiologic studies, plain films. 11:38 Data interpreted: paster supervisor: rate is 80 beats/min, rhythm is normal sinus rhythm, carmen regular, Pulse oximetry: on room air is 97 %. Test interpretation: by ED physician or midlevel provider: ECG, plain radiologic studies. 11/23 11:03 Order name: Basic Metabolic Panel; Complete Time: 13:54 hb 11/23 11:03 Order name: CBC with Diff; Complete Time: 11:34 11/23 11:03 Order name: LFT's; Complete Time: 13:54 11/23 11:03 Order name: Magnesium; Complete Time: 13:54 11/23 11:03 Order name: NT PRO-BNP; Complete Time: 13:54 11/23 11:03 Order name: PT-INR; Complete Time: 11:34 11/23 11:03 Order name: Troponin (emerg Dept Use Only); Complete Time: 13:54 11/23 13:55 Order name: Urinalysis [facility] 11/23 13:55 Order name: Basic Metabolic Panel [facility] 11/23 13:55 Order name: Basic Metabolic Panel [facility] 11/23 13:55 Order name: CBC with Automated Diff [facility] 11/23 13:55 Order name: CBC with Automated Diff [facility] 11/23 13:55 Order name: Hemoglobin A1c [facility] 11/23 13:55 Order name: Hemoglobin A1c [facility] 11/23 11:03 Order name: XRAY Chest (1 view); Complete Time: 13:54 11/23 11:03 Order name: EKG; Complete Time: 11:04 11/23 13:48 Order name: CONS Physician Consult [facility] 11/23 13:55 Order name: Magnesium [facility] 11/23 13:55 Order name: Magnesium [facility] 11/23 13:55 Order name: Protime (+INR) [facility] 11/23 13:55 Order name: Protime (+INR) [facility] 11/23 13:55 Order name: PTT, Activated Partial Thromb [facility] 11/23 13:55 Order name: PTT, Activated Partial Thromb [facility] 11/23 13:55 Order name: Troponin I [facility] 11/23 13:55 Order name: Troponin I [facility] 11/23 13:55 Order name: Troponin I [facility] 11/23 11:03 Order name: Cardiac monitoring; Complete Time: 11:05 hb 11/23 11:03 Order name: EKG - Nurse/Tech; Complete Time: 11: hb 11/23 11:03 Order name: IV Saline Lock; Complete Time: 11: hb 11/23 11:03 Order name: Labs collected and sent; Complete Time: 11: hb 11/23 11:03 Order name: O2 Per Protocol; Complete Time: 11: hb 11/23 11:03 Order name: O2 Sat Monitoring; Complete Time: 11: hb 11/23 13:55 Order name: Heart Healthy [facility] EC:41 Rate is 77 beats/min. Rhythm is regular. QRS [place] is Normal. [place] interval is normal. QRS carmen interval is normal. QT interval is normal. No Q waves. T waves are Normal. T waves are Inverted. No ST changes noted. Clinical impression: Abnormal EKG without significant change and No evidence of ischemia. Interpreted by me. Reviewed by me. Administered Medications: 11:53 Drug: Aspirin Chewable Tablet 162 mg Route: PO; hb 11:53 Drug: Lovenox 1 mg/kg Route: Sub-Q; Site: abdomen; hb 11:53 Drug: morphine 2 mg Route: IVP; Site: right antecubital; hb 11:53 Drug: Zofran (Ondansetron) 4 mg Route: IVP; Site: right antecubital; hb Disposition: 11/24/19 11:40 Hospitalization ordered by Juan Osborne for Observation. Preliminary diagnosis are Other chest pain, Type 2 diabetes mellitus, Essential (primary) hypertension. - Bed requested for Telemetry/MedSurg (observation). - Status is Observation. iw - Condition is Stable. - Problem is new. - Symptoms have improved. Signatures: Dispatcher [employer] EDMS Zan Molina MD MD cha Williams, Irene RN LEODAN Freida Escalante RN RN Soheila Poole RN RN jl7 Lindquist, Dalia mt Corrections: (The following items were deleted from the chart) 14:05 11:40 Hospitalization Ordered by Juan Osborne DO for Observation. Preliminary mt diagnosis is Other chest pain; Type 2 diabetes mellitus; Essential (primary) hypertension. Bed requested for Telemetry/MedSurg (observation). Status is Observation. Condition is Stable. Problem is new. Symptoms have improved. carmen 14:55 14:05 11/24/2019 11:40 Hospitalization Ordered by Juan Osborne DO for Observation. iw Preliminary diagnosis is Other chest pain; Type 2 diabetes mellitus; Essential (primary) hypertension. Bed requested for Telemetry/MedSurg (observation). Status is Observation. Condition is Stable. Problem is new. Symptoms have improved. mt
--- NOTE | 2019-11-24 11:42 | RAD REPORT ---
EXAM DESCRIPTION: RAD - Chest Single View - 11/24/2019 11:36 am CLINICAL HISTORY: CHEST PAIN Chest pain. COMPARISON: Chest Single View dated 04/11/2019; Chest Pa And Lat (2 Views) dated 02/23/2019; Chest Si ngle View dated 02/21/2019 FINDINGS: Portable technique limits examination quality. The lungs are grossly clear. The heart is normal in size. No displaced fractures. IMPRESSION: No acute intrathoracic process suspected.
[2019-11-24 11:47] LABS: ALT/SGPT 22 U/L (12-78); AST/SGOT 16 U/L (15-37); Albumin 3.7 g/dL (3.4-5.0); Alkaline Phosphatase 110 U/L (45-117); BUN Blood Urea Nitrogen 16 mg/dL (7-18); Bicarbonate 26 mmol/L (21-32); Bilirubin Direct 0.1 mg/dL (0-0.2); Bilirubin Total 0.5 mg/dL (0.2-1.0); Glucose Level 277 mg/dL (74-106); Magnesium 2.3 mg/dL (1.8-2.4); NT PRO-BNP 563 pg/mL (<125); Potassium 3.7 mmol/L (3.5-5.1); Protein, Total 7.1 g/dL (6.4-8.2); Sodium Level 140 mmol/L (136-145); Troponin (Emerg Dept Use Only) < 0.02 ng/mL (0.0-0.045)
[2019-11-24] MEDS ORDERED: MORPHINE 2 MG/ML SYR ONE (11:55)
[2019-11-24] MEDS ORDERED: ONDANSETRON 4 MG/2 ML VIAL ONE (11:55)
[2019-11-24] MEDS ORDERED: ENOXAPARIN 80 MG/0.8 ML SQ ONE (11:55)
[2019-11-24] MEDS ORDERED: ASPIRIN 81 MG CHEWABLE TABLET ONE (11:55)
[2019-11-24] MEDS ORDERED: ONDANSETRON 4 MG/2 ML VIAL IV PRN (13:48)
[2019-11-24] MEDS ORDERED: ACETAMINOPHEN 500 MG TAB PO PRN (13:48)
--- NOTE | 2019-11-24 14:05 | P.HP ---
Certification for Inpatient Patient admitted to: Observation With expected LOS: <2 Midnights Patient will require the following post-hospital care: None Practitioner: I am a practitioner with admitting privileges, knowledge of patient current condition, hospital course, and medical plan of care. Services: Services provided to patient in accordance with Admission requirements found in Title 42 Section 412.3 of the Code of Federal Regulations Patient History Date of Service: 11/24/19 Reason for admission: chest pain History of Present Illness: 69-year-old Syriac-speaking only female with a past medical history of type 2 diabetes, hypertension, and chronic congestive heart failure who presents to the emergency room with complaints of chest pain. Patient states that the chest pain started this morning around 9:00 a.m.. She also states that she became nauseous but did not vomit when the onset of chest pain occurred this morning. She describes the pain as a pressure. As if somebody standing on her chest. She also feels a stabbing sensation along the mid sternum to epigastric region. Denies radiation of the pain. Patient does state that she felt a tingling sensation along the thumb 1st and 2nd digit of the right hand that has not resolved. Patient denies having symptoms like this in the past. Describes the pain as a 5/10 the continues. In the emergency room patient he is alert and oriented x3. She is in no distress and is not requiring O2 support. She is Syriac-speaking only. Lab work in the emergency room is fairly unremarkable. Troponin negative at 0.02. Chest x-ray with no acute pathology. She does have a history of heart failure and her proBNP is slightly elevated at 563. Her bilateral lower extremities show some slight edema. Nausea has resolved. Patient may be slightly fluid overloaded. She denies drinking or smoking. Does not drink caffeine. She is compliant with her medications. Patient will be placed in observation for further evaluation. Allergies No Known Allergies Allergy (Verified 04/11/19 04:04) Home medications list reviewed: Yes Home Medications: Metformin ER [Glucophage ER*] 1,000 mg PO BID 02/22/19 Atorvastatin Calcium [Lipitor] 40 mg PO BEDTIME tab 04/11/19 Metoprolol Tartrate [Lopressor] 12.5 mg PO BID #30 tab 04/11/19 Furosemide [Lasix*] 40 mg PO DAILY #30 tab 04/12/19 Spironolactone [Aldactone*] 25 mg PO DAILY #30 tab 04/12/19 - Past Medical/Surgical History Diabetic: Yes -: Diabetes mellitus type 2 non insulin dependent -: Hypertension -: Cardiomegaly -: Arthritis -: Former tobacco use -: Hysterectomy -: Appendectomy -: skin cancer removal from neck Psychosocial/ Personal History: Patient is . She does not work - Family History Father -: Lung disease Mother -: Lung disease - Social History Alcohol use: No CD- Drugs: No Caffeine use: Yes Review of Systems General: Unremarkable Eyes: Unremarkable Respiratory: Unremarkable Cardiovascular: Chest Pain, As per HPI Gastrointestinal: Nausea Genitourinary: Unremarkable Musculoskeletal: Pedal edema, As per HPI Integumentary: Unremarkable Neurological: Unremarkable Physical Examination - Physical Exam General: Alert, In no apparent distress, Oriented x3 HEENT: Atraumatic, Normocephalic, PERRLA Neck: Supple, Other (Trachea midline) Respiratory: Clear to auscultation bilaterally, Normal air movement Cardiovascular: No edema, Normal pulses, Regular rate/rhythm, Normal S1 S2 Gastrointestinal: Normal bowel sounds, Soft and benign, Non-distended Musculoskeletal: No clubbing, No swelling, No contractures Integumentary: No rashes, No breakdown, No significant lesion Neurological: Normal gait, Normal speech, Normal strength at 5/5 x4 extr, Normal tone - Studies Laboratory Data (last 24 hrs) 11/24/19 11:06: PT 11.8, INR 1.00 11/24/19 11:06: WBC 7.9, Hgb 11.5 L, Hct 33.0 L, Plt Count 306 11/24/19 11:06: Sodium 140, Potassium 3.7, BUN 16, Creatinine 1.23, Glucose 277 H, Magnesium 2.3 D, Total Bilirubin 0.5, AST 16, ALT 22, Alkaline Phosphatase 110 Assessment and Plan - Plan Impression: Chest pain with history of chronic congestive heart failure likely systolic and diastolic based on the cath report from February 2019: Type 2 diabetes mellitus: Essential hypertension: Plan: Chest pain with history of chronic congestive heart failure likely systolic and diastolic based on the cath report from February 2019: Patient has a history of chronic congestive systolic and diastolic heart failure based on echo from March 2019 which showed an ejection fraction of 20% but the patient had a cardiac catheterization in February of 2019 with showed an ejection fraction of 40%. On examination patient is likely slightly volume overloaded. Will place on telemetry. Will gently diurese. Patient takes furosemide 40 mg daily. Continue home medications of Lasix, spironolactone 25 mg daily, isosorbide mononitrate 30 mg a.m. daily. Consulted cardiology-Dr. Gurrola. Will await recommendations. Will continue to trend troponins. Likely discharge in the next 24-48 hr assuming no major complications. Type 2 diabetes mellitus: Will order hemoglobin A1c. Will place patient on sliding scale insulin and monitor glucose. Will continue diabetic diet. Essential hypertension: Stable. Will resume home medications of metoprolol tartrate 50 mg b.i.d. Discharge Plan: Home Plan to discharge in: 48 Hours - Advance Directives Does patient have a Living Will: No Does patient have a Durable POA for Healthcare: No - Code Status/Comfort Care Code Status Assessed: Yes
[2019-11-24 15:06] VITALS: O2SAT 97
[2019-11-24] MEDS: INSULIN -REGULAR HUMAN 50 UNIT/0.5 ML ML SQ SCH ×2 (16:30→21:00)
[2019-11-24] MEDS ORDERED: PNEUMOCOCCAL VACCINE 0.5 ML IMVAC ONE (18:00)
[2019-11-24 18:35] LABS: Urine Appearance CLEAR; Urine Bilirubin NEGATIVE (NEG); Urine Blood NEGATIVE (NEG); Urine Color YELLOW; Urine Glucose NEGATIVE (NEG); Urine Protein NEGATIVE (NEG); Urine Urobilinogen 0.2 mg/dL (0.2-1.0); Urine pH 5.5 (5.0-7.0)
[2019-11-24 18:38] LABS: Urine Microscopic Reflex NO UMIC
[2019-11-24] MEDS: HEPARIN 5000 UNIT/ML 1 ML VIAL SQ SCH (20:53)
[2019-11-24] MEDS: METOPROLOL TAR 50 MG TAB PO SCH (20:54)
[2019-11-24] MEDS ORDERED: ATORVASTATIN 40 MG TAB PO SCH (21:00)
[2019-11-24] MEDS ORDERED: METOPROLOL TAR 50 MG TAB PO SCH (21:00)
[2019-11-25 01:20] VITALS: BMI 26.4
[2019-11-25 05:09] LABS: Basophils % 1.5 % (0-1.3); Hematocrit 31.7 % (36.0-45.0); Lymphocytes % 38.9 % (15.3-44.8); MPV 8.1 fL (7.6-11.3); RBC Red Blood Cell Count 3.42 M/uL (3.86-4.86)
[2019-11-25 05:16] VITALS: TEMP 96.9
[2019-11-25 05:17] LABS: Protime INR 1.04
[2019-11-25 05:24] LABS: Magnesium 2.3 mg/dL (1.8-2.4); Potassium 3.7 mmol/L (3.5-5.1)
[2019-11-25] MEDS: INSULIN -REGULAR HUMAN 50 UNIT/0.5 ML ML SQ SCH (07:30)
[2019-11-25] MEDS ORDERED: PANTOPRAZOLE 40MG TABLET PO SCH (07:30)
[2019-11-25 07:34] LABS: Anisocytosis 1+; Blood Morphology Comment NOTED (NOT SEEN); Platelet Estimate ADEQ
[2019-11-25] MEDS: predniSONE 10 MG TAB PO SCH ×2 (08:21→09:00)
[2019-11-25] MEDS: METOPROLOL TAR 50 MG TAB PO SCH (08:44)
[2019-11-25] MEDS: HEPARIN 5000 UNIT/ML 1 ML VIAL SQ SCH (08:45)
[2019-11-25 08:54] VITALS: BP 146/68
[2019-11-25] MEDS ORDERED: SPIRONOLACTONE 25 MG TABLET PO SCH ×2 (09:00)
[2019-11-25] MEDS ORDERED: FUROSEMIDE 40 MG TABLET PO SCH ×2 (09:00)
[2019-11-25] MEDS ORDERED: POTASSIUM CL SA 10 MEQ TAB PO ONE (09:00)
[2019-11-25] MEDS ORDERED: ISOSORBIDE MONO SR 30 MG TAB PO SCH (09:00)
--- NOTE | 2019-11-25 09:49 | P.DS ---
Admission Date: 11/25/19 Discharge Date: 11/25/19 Disposition: ROUTINE DISCHARGE Discharge Condition: GOOD Reason for Admission: chest pain Consultations: Cardiology-Dr. Mcdonnell/Elisa Procedures: CXR: FINDINGS: Portable technique limits examination quality. The lungs are grossly clear. The heart is normal in size. No displaced fractures. IMPRESSION: No acute intrathoracic process suspected. Heart cath 03/08: Surgeon: Nick Tyson MD Procedure: Left heart catheterization with coronary and left ventricular angiography. Indication: [id number] [place]. Procedure Findings: The patient has normal coronary arteries, very large lumen, no lumen irregularities or stenosis or occlusions. Her ejection fraction is depressed at about 40%. There is global hypokinesis. Left ventricular end- diastolic pressure is 7 and the final diagnosis is nonischemic cardiomyopathy. Complications: None. Estimated Blood Loss: 5 mL. ECHO 04/08: EF 20% LEFT VENTRICULAR WALL MOTION: SEVER GLOBAL HYPOKINESIS. DOPPLER/COLOR FLOW: MILD MITRAL AND TRICUSPID REGURGITATION. COMMENTS: MILD MITRAL AND TRICUSPID REGURGITATION. SEVERE GLOBAL HYPOKINESIS. EJECTION FRACTION 20%. LEFT VENTRICULAR DILATATION Medical Problem List: Chest pain with history of chronic systolic congestive heart failure with prior heart catheterization February 2019 showing normal coronaries, likely pleurisy Diabetes mellitus type 2 [id number] with hyperglycemia Hypertension Chronic renal disease stage III History of tobacco use possible underlying COPD Brief History of Present Illness: 69-year-old female with history of systolic CHF, chronic renal disease, diabetes and hypertension. Patient presented with substernal chest pain. Pain was worth with shortness of breath. Patient admitted for further evaluation and treatment. Patient with prior heart catheterization performed February 2019 showing normal coronaries. Hospital Course: Patient presented with chest pain. Patient with history of chronic systolic CHF with prior heart catheterization performed February 2019 showing normal coronaries. EF at that time was around 40%. Echocardiogram done in March of 2019 showed EF around 20%. Patient was admitted for further evaluation observation. Patient seen and evaluated by Cardiology. Cardiology recommended no further evaluation at this time. Chest pain noncardiac in nature likely pleurisy. Patient given steroid treatment. At discharge she will continue with prednisone 10 mg 1 pill twice daily for 7 days. Patient will also be provided Pro air 2 puffs 3 times a day as needed for shortness of breath. For her chronic systolic CHF patient will continue with a 1500 cc per day fluid restriction and low-salt diet. Recommend to monitor her weight daily. If her weight increases by more than 5 lb she is to contact her PCP or cardiology for further recommendation. At discharge she will continue with her current medication of Aldactone 25 mg daily and Lasix 40 mg daily. Patient plans to establish care with a local physician to continue her care. Recommend follow up with cardiology in 2-4 weeks to monitor her progress. Patient with hypertension. This has remained stable. At discharge she will continue with metoprolol 12.5 mg 1 pill twice daily. Recommend to maintain blood pressure less than 140/90. Further adjustment in medication may be required. This can be done with the help of her PCP or heel slugger. Patient with diabetes mellitus type 2 [id number] with noted hyperglycemia. A1c 7.5. Patient may continue with her medication of metformin 1000 mg 1 pill twice daily. Recommend to maintain blood sugar less 140 fasting and less than 200 after meals. Further adjustment can be done by her PCP. Patient with history of tobacco use in the distant past. Patient with noted pleurisy. Patient likely has underlying COPD. Recommend follow up with pulmonology in 1-2 weeks to follow up this hospitalization. As recommended above patient will continue with prednisone 10 mg 1 pill twice daily for 7 days. Patient will also be provided Pro air 2 puffs 3 times a day as needed for shortness of breath. Patient would benefit with a pulmonary function test to further evaluate the possibility of COPD. Patient was also tested for COVID. Results pending at discharge. Patient will need to continue with social distance seen, mask and hand washing. [facility] gu idelines will be provided. Patient will be called with final results. Patient with chronic renal disease stage III. This has remained stable. Recommend no further use of chronic nonsteroidal anti-inflammatories. Future medications may need to be renally dosed. Recommend to recheck lab-BMP in 1-2 weeks to monitor progress. Patient would benefit with nephrology evaluation as an outpatient to further address. PCP will need to consider adjusting diabetic medication-metformin in the future if renal function be comes worse. Vital Signs/Physical Exam: Temp Pulse Resp BP Pulse Ox 96.9 F 66 16 146/68 H 96 11/25/19 08:00 11/25/19 08:44 11/25/19 08:00 11/25/19 08:44 11/25/19 08:00 General: Alert, In no apparent distress, Oriented x3, Cooperative HEENT: Atraumatic Neck: Supple Respiratory: Clear to auscultation bilaterally, Normal air movement, Other (Pain with palpation to the sternal area) Cardiovascular: Normal pulses, Regular rate/rhythm Gastrointestinal: Normal bowel sounds, Soft and benign, Non-distended, No tenderness, No masses, No rebound, No guarding Musculoskeletal: No erythema, No tenderness, No warmth Integumentary: No tenderness/swelling, No erythema, No warmth, No cyanosis Neurological: Normal speech, Normal strength at 5/5 x4 extr, Normal tone, Normal affect Laboratory Data at Discharge: WBC 7.7 K/uL (4.3-10.9) 11/25/19 04:27 Hgb 11.0 g/dL (12.0-15.0) L 11/25/19 04:27 Hct 31.7 % (36.0-45.0) L 11/25/19 04:27 Plt Count 256 K/uL (152-406) 11/25/19 04:27 PT 12.3 SECONDS (9.5-12.5) 11/25/19 04:27 INR 1.04 11/25/19 04:27 APTT 37.4 SECONDS (24.3-36.9) H 11/25/19 04:27 Sodium 142 mmol/L (136-145) 11/25/19 04:27 Potassium 3.7 mmol/L (3.5-5.1) 11/25/19 04:27 BUN 19 mg/dL (7-18) H 11/25/19 04:27 Creatinine 1.27 mg/dL (0.55-1.3) 11/25/19 04:27 Glucose 112 mg/dL (74-106) H 11/25/19 04:27 Magnesium 2.3 mg/dL (1.8-2.4) 11/25/19 04:27 Total Bilirubin 0.5 mg/dL (0.2-1.0) 11/24/19 11:06 AST 16 U/L (15-37) 11/24/19 11:06 ALT 22 U/L (12-78) 11/24/19 11:06 Alkaline Phosphatase 110 U/L (45-117) 11/24/19 11:06 Troponin I < 0.02 ng/mL (0.0-0.045) 11/25/19 00:19 Home Medications: Metformin ER [Glucophage ER*] 1,000 mg PO BID 02/22/19 Atorvastatin Calcium [Lipitor] 40 mg PO BEDTIME tab 04/11/19 Metoprolol Tartrate [Lopressor*] 12.5 mg PO BID #30 tab 04/11/19 Furosemide [Lasix*] 40 mg PO DAILY #30 tab 04/12/19 Spironolactone [Aldactone*] 25 mg PO DAILY #30 tab 04/12/19 Albuterol Sulfate [Proair Hfa] 2 puff IH TID PRN #1 hfa.aer.ad 11/25/19 predniSONE [Deltasone*] 10 mg PO BID #14 tab 11/25/19 New Medications: predniSONE [Deltasone*] 10 mg PO BID #14 tab Albuterol Sulfate [Proair Hfa] 2 puff IH TID PRN #1 hfa.aer.ad PRN Reason: Shortness Of Breath Patient Discharge Instructions: 1. Recommend follow up with PCP in 1 week to follow up this hospitalization. 2. Patient presented with chest pain. Patient with history of chronic systolic CHF with prior heart catheterization performed February 2019 showing normal coronaries. EF at that time was around 40%. Echocardiogram done in March of 2019 showed EF around 20%. Patient was admitted for further evaluation observation. Patient seen and evaluated by Cardiology. Cardiology recommended no further evaluation at this time. Chest pain noncardiac in nature likely pleurisy. Patient given steroid treatment. At discharge she will continue with prednisone 10 mg 1 pill twice daily for 7 days. Patient will also be provided Pro air 2 puffs 3 times a day as needed for shortness of breath. 3. For her chronic systolic CHF patient will continue with a 1500 cc per day fluid restriction and low-salt diet. Recommend to monitor her weight daily. If her weight increases by more than 5 lb she is to contact her PCP or cardiology for further recommendation. At discharge she will continue with her current medication of Aldactone 25 mg daily and Lasix 40 mg daily. Patient plans to establish care with a local physician to continue her care. Recommend follow up with cardiology in 2-4 weeks to monitor her progress. 4. Patient with hypertension. This has remained stable. At discharge she will continue with metoprolol 12.5 mg 1 pill twice daily. Recommend to maintain blood pressure less than 140/90. Further adjustment in medication may be required. This can be done with the help of her PCP or heel slugger. 5. Patient with diabetes mellitus type 2 [id number] with noted hyperglycemia. A1c 7.5. Patient may continue with her medication of metformin 1000 mg 1 pill twice daily. Recommend to maintain blood sugar less 140 fasting and less than 200 after meals. Further adjustment can be done by her PCP. 6. Patient with history of tobacco use in the distant past. Patient with noted pleurisy. Patient likely has underlying COPD. Recommend follow up with pulmonology in 1-2 weeks to follow up this hospitalization. As recommended above patient will continue with prednisone 10 mg 1 pill twice daily for 7 days. Patient will also be provided Pro air 2 puffs 3 times a day as needed for shortness of breath. Patient would benefit with a pulmonary function test to further evaluate the possibility of COPD. 7. Patient was also tested for COVID. Results pending at discharge. Patient will need to continue with social distance seen, mask and hand washing. CDC guidelines will be provided. Patient will be called with final results. 8. Patient with chronic renal disease stage III. This has remained stable. Recommend no further use of chronic nonsteroidal anti-inflammatories. Future medications may need to be renally dosed. Recommend to recheck lab-BMP in 1-2 weeks to monitor progress. Patient would benefit with nephrology evaluation as an outpatient to further address. PCP will need to consider adjusting diabetic medication-metformin in the future if renal function be comes worse. Diet: ADA Activity: Ad devika Time spent managing pt's care (in minutes): 55
--- NOTE | 2019-11-25 10:58 | EKG ---
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
--- NOTE | 2019-11-25 23:49 | PN ---
Date of Progress Note: 11/25/2019 Ms. Stuart was admitted with congestive heart failure and chest pain on 11/24/2019. History Of Present Illness: Ms. Stuart was seen by yesterday for congestive heart fail ure and chest pain. She has been diuresed, diuresing well. She is known to have chronic systolic co ngestive heart failure with EF between 20 and 40% depending on the echo or the stress test. Heart ca theterization in February of 2019 showed normal coronaries by Dr. Tyson. She is feeling much better today, is not complaining of any chest pain or shortness of breath. She also has diabetes and hypert ension and history of tobacco use. She had a negative troponin and positive . Today, she has no rales. Vital signs are stable. Afebrile. She has no edema. I suggest she goes home on her present regimen with this. We will see her in the office in the near future. KARLIE/RAYA Voice ID: [id number] Report ID: [id number]
== END 2019-11-25 11:59 | disposition home or self-care (01) | DRG 292 ==
LOC: ER 10:56 → ERHOLD 13:46 → 2ND 14:30 → OBSVTOIN 11-25 08:01
PROVIDERS: ADMIT Family Medicine; ATTEND Family Medicine
DX: I13.0 Hypertensive heart and chronic kidney disease with heart failure and stage 1 through stage 4 chronic kidney disease, or unspecified chronic kidney disease (principal); I50.42 Chronic combined systolic (congestive) and diastolic (congestive) heart failure; E11.9 Type 2 diabetes mellitus without complications; I10 Essential (primary) hypertension; M19.90 Unspecified osteoarthritis, unspecified site; R09.1 Pleurisy; E11.22 Type 2 diabetes mellitus with diabetic chronic kidney disease; N18.3 Chronic kidney disease, stage 3 (moderate); Z20.828 Contact with and (suspected) exposure to other viral communicable diseases; Z28.21 Immunization not carried out because of patient refusal; Z87.891 Personal history of nicotine dependence
CPT/HCPCS: 36415; 71045; 80048; 80076; 81003; 82947; 83036; 83735; 83880; 84484; 85025; 85610; 85730; 93005; 96372; 96374; 96375; 99285; G0378; J1644; J1650; J2270; J2405; U0002